=== PATIENT | female | born 1965 | race African-American/Black ===

== ENCOUNTER 2018-11-07 15:17 | Emergency (ER) | payer OTHER ==
[~2018-11-07] VITALS: Ht 170.2 cm; Wt 63.0 kg
[2018-11-07] MEDS ORDERED: DIPHENHYDRAMINE 50 MG INJ IV STA (15:27)
[2018-11-07] MEDS ORDERED: SOD CHLORIDE 0.9% 1,000 ML IV STA ×2 (15:27→18:33)
[2018-11-07] MEDS ORDERED: METOCLOPRAMIDE 10 MG INJ IV STA (15:27)
[2018-11-07] MEDS ORDERED: ONDANSETRON 4 MG INJ IV STA (15:27)
[2018-11-07 15:32] VITALS: Ht 170.2 cm; Wt 63.0 kg
[2018-11-07] MEDS ORDERED: IBUP-1542 PO (18:05)
[2018-11-07] MEDS ORDERED: ONDA4TAB14 PO (18:05)
--- NOTE | 2018-11-07 18:06 | ERD ---
ER Documentation Chief Complaint Chief Complaint Syncopial episode witnessed now aox4 HPI Patient is a 53-year-old female with headache who presents with headache. The patient was brought in by ambulance. She has had a headache for the past 3 days which has been worsening. The patient had a normal blood sugar per paramedics at 101. The patient did pass out just before coming in. The patient has no fevers. She denies vomiting. She says this headache feels like previous headaches she has had in the past. Upon review of old medical records this is the patient's first visit to the emergency department. She goes to the [facility]. ROS All systems reviewed and are negative except as per history of present illness. Medications Home Meds Active Scripts Ondansetron (Ondansetron Odt) 4 Mg Tab.rapdis, 4 MG PO Q6H PRN for NAUSEA AND/OR VOMITING, #10 TAB Prov:MITESH ANGELA MD 11/07/18 Ibuprofen* (Motrin*) 600 Mg Tab, 600 MG PO Q6H PRN for PAIN AND OR ELEVATED TEMP, #30 TAB Prov:MITESH ANGELA MD 11/07/18 PMhx/Soc Medical and Surgical Hx: pt denies Medical Hx History of Surgery: Yes () Anesthesia Reaction: No Hx Neurological Disorder: No Hx Respiratory Disorders: No Hx Cardiac Disorders: No Hx Psychiatric Problems: No Hx Miscellaneous Medical Probl: No (PT DENIES MEDICAL HX) Hx Alcohol Use: No Hx Substance Use: Yes (MJ) Hx Tobacco Use: No Smoking Status: Former smoker FmHx Family History: diabetes Physical Exam Vitals Vital Signs Date Temp Pulse Resp B/P (MAP) Pulse Ox O2 O2 Flow FiO2 Time Delivery Rate 11/07/18 98.3 56 18 96/76 (83) 100 15:32 Physical Exam Const: Moderate distress Head: Atraumatic Eyes: Normal Conjunctiva ENT: Normal External Ears, Nose and Mouth. Neck: Full range of motion. No meningismus. Resp: Clear to auscultation bilaterally Cardio: Regular rate and rhythm, no murmurs Abd: Soft, non tender, non distended. Normal bowel sounds Skin: No petechiae or rashes Back: No midline or flank tenderness Ext: No cyanosis, or edema Neur: Awake and alert, cranial nerves II through XII are intact, strength is 5 out of 5 in all 4 extremities Psych: Normal Mood and Affect Result Diagram: 11/07/18 1555 11/07/18 1555 Results 24 hrs Laboratory Tests Test 11/07/18 15:51 11/07/18 15:55 11/07/18 17:42 Bedside Glucose 104 mg/dL White Blood Count 7.5 10^3/ul Red Blood Count 4.25 10^6/ul Hemoglobin 13.3 g/dl Hematocrit 40.0 % Mean Corpuscular Volume 94.1 fl Mean Corpuscular Hemoglobin 31.3 pg Mean Corpuscular 33.3 g/dl Hemoglobin Concent Red Cell Distribution Width 12.2 % Platelet Count 262 10^3/UL Mean Platelet Volume 8.9 fl Immature Granulocytes % 0.100 % Neutrophils % 56.8 % Lymphocytes % 33.9 % Monocytes % 8.4 % Eosinophils % 0.4 % Basophils % 0.4 % Nucleated Red Blood Cells % 0.0 /100WBC Immature Granulocytes # 0.010 10^3/ul Neutrophils # 4.2 10^3/ul Lymphocytes # 2.5 10^3/ul Monocytes # 0.6 10^3/ul Eosinophils # 0.0 10^3/ul Basophils # 0.0 10^3/ul Nucleated Red Blood Cells # 0.0 10^3/ul Sodium Level 139 mmol/L Potassium Level 3.5 mmol/L Chloride Level 102 mmol/L Carbon Dioxide Level 27 mmol/L Anion Gap 10 Blood Urea Nitrogen 12 mg/dl Creatinine 0.71 mg/dl Est Glomerular Filtrat > 60 mL/min Rate mL/min Glucose Level 91 mg/dl Calcium Level 9.4 mg/dl Troponin I < 0.012 ng/ml Urine Color YELLOW Urine Clarity CLEAR Urine pH 6.0 Urine Specific [place] 1.012 Urine Ketones NEGATIVE mg/dL Urine Nitrite NEGATIVE mg/dL Urine Bilirubin NEGATIVE mg/dL Urine Urobilinogen 1+ mg/dL Urine Leukocyte Esterase TRACE Abraham/ul Urine Microscopic RBC 1 /HPF Urine Microscopic WBC 2 /HPF Urine Squamous Epithelial Cells FEW /HPF Urine Bacteria FEW /HPF Urine Mucus FEW /HPF Urine Hemoglobin NEGATIVE mg/dL Urine Glucose NEGATIVE mg/dL Urine Total Protein NEGATIVE mg/dl Current Medications Medications Dose Sig/Diana Start Time Status Last (Trade) Ordered Route PRN Stop Time Admin Dose Reason Admin Sodium 1,000 ml @ Q1H STAT 11/07/18 DC 11/07/18 Chloride 1,000 mls/hr IV 15:27 16:12 11/07/18 16:26 10 mg ONCE STAT 11/07/18 DC 11/07/18 Metoclopramid IV 15:27 16:06 e HCl 11/07/18 15:29 (Reglan) Ondansetron 4 mg ONCE STAT 11/07/18 DC 11/07/18 HCl (Zofran IV 15:27 16:06 Inj) 11/07/18 15:29 25 mg ONCE STAT 11/07/18 DC 11/07/18 Diphenhydrami IV 15:27 16:06 ne HCl 11/07/18 15:29 (Benadryl) Procedures/MDM EKG read by me: Rate/Rhythm: Sinus bradycardia at a rate of 56 Intervals: Normal Impression: Bradycardia without ischemia CT brain shows no bleed or mass per radiology. Patient is a 53-year-old female who presents with headache and syncope. Laboratory studies are normal. EKG shows bradycardia without ischemia. CT brain shows no sign of mass or bleed. I doubt stroke. I doubt serious electrolyte abnormality. I believe outpatient management is appropriate but she will need close follow-up with her primary doctor within 24-48 hours. She can return sooner for any worsening symptoms. She was given Reglan, Benadryl, and Zofran as well as 1 L of normal saline fluid bolus and feels much better. Departure Diagnosis: Primary Impression: Headache Headache type: unspecified Headache chronicity pattern: acute headache Intractability: not intractable Qualified Codes: R51 - Headache Additional Impression: Syncope Syncope type: unspecified Qualified Codes: R55 - Syncope and collapse Condition: Fair Patient Instructions: Causes of Syncope, Self-Care for Headaches Additional Instructions: Call your primary care doctor TOMORROW for an appointment during the next 1-2 days.See the doctor sooner or return here if your condition worsens before your appointment time. MITESH ANGELA MD Nov 07, 2018 18:06
[2018-11-07 20:32] VITALS: BP 88/55; PULSE 59; RESP 18
== END 2018-11-07 20:33 | disposition home or self-care (01) ==
LOC: E/R 15:17
DX: R51 Headache (principal); Z87.891 Personal history of nicotine dependence
CPT/HCPCS: 36415; 70450; 80048; 81001; 82962; 84484; 85025; 93005; 96374; 96375; J1200; J2405; J2765; J7030; Z7502

== ENCOUNTER 2018-11-08 13:30 | Inpatient (IN) | payer OTHER ==
[~2018-11-08] VITALS: Ht 157.5 cm; Wt 70.1 kg
[~2018-11-08 13:30] MED LIST: IBUP-1542 PO; ONDA4TAB14 PO
[2018-11-08] MEDS ORDERED: ONDANSETRON 4 MG INJ IV STA (16:08)
[2018-11-08] MEDS ORDERED: morphine 4 MG/ML VIAL IV STA (16:08)
[2018-11-08] MEDS ORDERED: SOD CHLORIDE 0.9% 1,000 ML IV STA ×2 (16:08→19:07)
[2018-11-08] MEDS ORDERED: IOHEXOL 100 ML ONE (16:18)
[2018-11-08] MEDS ORDERED: SOD CHLORIDE 0.9% 100 ML ONE (16:18)
[2018-11-08] MEDS ORDERED: ONDANSETRON 4 MG INJ IV PRN ×2 (17:00→22:30)
[2018-11-08] MEDS ORDERED: ACETAMINOPHEN 325 MG TAB PO PRN ×2 (17:00→22:30)
--- NOTE | 2018-11-08 18:08 | HP ---
Date/Time of Note Date/Time of Note DATE: 11/08/18 TIME: 17:53 Assessment/Plan VTE Prophylaxis Pharmacological prophylaxis: heparin Lines/Catheters IV [facility]ter [facility]from [facility]): Saline Lock Assessment/Plan Hospital Course 53 yo female without significant PMH who presents with headache and syncope, found to be bradycardic Headache: - Duration is concerning for migraine but other clinical characteristics make it sound more like tension. Regardless head CT does not show concerning pathology - MRI for completion - Analgesics - Neurology Syncope: - Concerning for primary cardiac etiology given bradycardia, though HR does go up to 60s - JVD presents on exam concerning for cardiomyopathy, will get TTE - Check TSH given bradycardia - Cardiology consult - monitor or telemetry Result Diagram: 11/08/18 1626 Results 24hrs Laboratory Tests Test 11/08/18 16:26 White Blood Count 7.5 Red Blood Count 4.17 L Hemoglobin 13.5 Hematocrit 40.7 Mean Corpuscular Volume 97.6 Mean Corpuscular Hemoglobin 32.4 Mean Corpuscular Hemoglobin Concent 33.2 Red Cell Distribution Width 12.2 Platelet Count 231 Mean Platelet Volume 9.5 Immature Granulocytes % 0.300 Neutrophils % 52.1 Lymphocytes % 37.3 Monocytes % 9.1 Eosinophils % 0.9 Basophils % 0.3 Nucleated Red Blood Cells % 0.0 Immature Granulocytes # 0.020 Neutrophils # 3.9 Lymphocytes # 2.8 Monocytes # 0.7 Eosinophils # 0.1 Basophils # 0.0 Nucleated Red Blood Cells # 0.0 HPI/ROS Admit Date/Time Admit Date/Time Hx of Present Illness 53 yo female without significant PMH presents with syncope and headache Has been in usual state of good health until a few days ago. Since then has syncopized twice. She has also developed headacehs Syncope occurred yesterday. She was standing at a bus stop. Began to feel lightheaded and clammy. Bent over then syncopized. Clearly had prodrome Came to ED yesterday where found to be hypotensive. Given 2 L NS and discharged. Tropin neg. Labs unremarkable. Head CT without acute pathology Today she returns because she continues to have headache. It is bilateral across forehead. Nonpulsatile. No visual symptoms or aura of any sort. Denies fevers Feels fatigued. ROS Constitutional: no complaints, improved Eyes: no complaints ENT: no complaints Respiratory: no complaints Cardiovascular: no complaints Gastrointestinal: no complaints Genitourinary: no complaints Musculoskeletal: no complaints Skin: no complaints Neurologic: no complaints Endocrine: no complaints Lymphatic: no complaints Psychological: no complaints, nl mood/affect Immunologic: no complaints PMH/Family/Social Past Medical History Medical History: no pertinent history Medications Current Medications Ondansetron HCl (Zofran Inj) 4 mg ER BRIDGE PRN IV NAUSEA/VOMITING; Start 11/08/18 at 17:00; Stop 11/09/18 at 16:59 Acetaminophen (Tylenol Tab) 650 mg ER BRIDGE PRN PO .MILD PAIN 1-3 OR TEMP; Start 11/08/18 at 17:00; Stop 11/09/18 at 16:59 Coded Allergies: No Known Allergy (Unverified , 11/08/18) Past Surgical History Past Surgical Hx: no surgical history Family History Significant Family History: no pertinent family hx Social History Alcohol Use: none Smoking Status: Never smoker Drug Use: none Exam/Review of Systems Vital Signs Vitals Vital Signs Date Temp Pulse Resp B/P (MAP) Pulse Ox O2 O2 Flow FiO2 Time Delivery Rate 11/08/18 48 18 124/77 100 Room Air 16:38 (93) 11/08/18 97.0 16:27 Exam Exam Well appearing In NAD AOx3 CN II-XII in tact Strenght 5/5 throughout SILT throughout + JVD Bradycardic, regular Lungs clear Abdomen soft nt nd Ext wihtout edema MARIA INES BARTON MD Nov 08, 2018 18:07
--- NOTE | 2018-11-08 18:21 | ERD ---
ER Documentation Chief Complaint Chief Complaint BLAKE, SOB X 1 DAY; SEEN IN THIS ER YESTERDAY FOR SYNCOPE HPI Patient is a 53-year-old female with no medical problems who presents saying "I feel worse today than yesterday". The patient says that she has a bad headache. She says that she feels generalized weakness and no energy. She had syncope yesterday and was seen by myself in the emergency department. She has tried Motrin. Upon review of old medical records she has had only 2 visits to the ER yesterday and today. Her primary doctor is Dr. Dilshad Bland. ROS All systems reviewed and are negative except as per history of present illness. Medications Home Meds Discontinued Scripts Ondansetron (Ondansetron Odt) 4 Mg Tab.rapdis, 4 MG PO Q6H PRN for NAUSEA AND/OR VOMITING, #10 TAB Prov:MITESH ANGELA MD 11/07/18 Ibuprofen* (Motrin*) 600 Mg Tab, 600 MG PO Q6H PRN for PAIN AND OR ELEVATED TEMP, #30 TAB Prov:MITESH ANGELA MD 11/07/18 Allergies Allergies: Coded Allergies: No Known Allergy (Unverified , 11/08/18) PMhx/Soc History of Surgery: Yes ( x 1 ) Anesthesia Reaction: No Hx Neurological Disorder: No Hx Respiratory Disorders: No Hx Cardiac Disorders: No Hx Psychiatric Problems: No Hx Miscellaneous Medical Probl: Yes (ANEMIA) Hx Alcohol Use: No Hx Substance Use: Yes (MJ) Hx Tobacco Use: No Smoking Status: Never smoker FmHx Family History: diabetes Physical Exam Vitals Vital Signs Date Temp Pulse Resp B/P (MAP) Pulse Ox O2 O2 Flow FiO2 Time Delivery Rate 11/08/18 45 20 102/54 100 Room Air 18:07 (70) 11/08/18 48 18 124/77 100 Room Air 16:38 (93) 11/08/18 97.0 8 24 139/65 100 Room Air 16:27 (89) 11/08/18 97.0 52 24 139/65 100 14:17 (89) Physical Exam Const: Moderate distress Head: Atraumatic Eyes: Normal Conjunctiva ENT: Normal External Ears, Nose and Mouth. Neck: Full range of motion. No meningismus. Resp: Clear to auscultation bilaterally Cardio: Regular rate and rhythm, no murmurs Abd: Soft, non tender, non distended. Normal bowel sounds Skin: No petechiae or rashes Back: No midline or flank tenderness Ext: No cyanosis, or edema Neur: Awake and alert, cranial nerves II through XII are intact, strength is 5 out of 5 in all 4 extremities, no slurred speech or pronator drift Psych: Normal Mood and Affect Result Diagram: 11/08/18 1626 11/08/18 1534 Results 24 hrs Laboratory Tests Test 11/08/18 16:26 11/08/18 17:34 White Blood Count 7.5 10^3/ul Red Blood Count 4.17 10^6/ul Hemoglobin 13.5 g/dl Hematocrit 40.7 % Mean Corpuscular Volume 97.6 fl Mean Corpuscular Hemoglobin 32.4 pg Mean Corpuscular Hemoglobin Concent 33.2 g/dl Red Cell Distribution Width 12.2 % Platelet Count 231 10^3/UL Mean Platelet Volume 9.5 fl Immature Granulocytes % 0.300 % Neutrophils % 52.1 % Lymphocytes % 37.3 % Monocytes % 9.1 % Eosinophils % 0.9 % Basophils % 0.3 % Nucleated Red Blood Cells % 0.0 /100WBC Immature Granulocytes # 0.020 10^3/ul Neutrophils # 3.9 10^3/ul Lymphocytes # 2.8 10^3/ul Monocytes # 0.7 10^3/ul Eosinophils # 0.1 10^3/ul Basophils # 0.0 10^3/ul Nucleated Red Blood Cells # 0.0 10^3/ul Prothrombin Time 14.2 Sec Prothrombin Time Ratio 1.1 INR International Normalized Ratio 1.09 Activated Partial Thromboplast Time 32.1 Sec Sodium Level 139 mmol/L Potassium Level 3.3 mmol/L Chloride Level 110 mmol/L Carbon Dioxide Level 23 mmol/L Anion Gap 6 Blood Urea Nitrogen 9 mg/dl Creatinine 0.55 mg/dl Est Glomerular Filtrat Rate mL/min > 60 mL/min Glucose Level 59 mg/dl Calcium Level 7.9 mg/dl Current Medications Medications Dose Sig/Diana Start Time Status Last (Trade) Ordered Route PRN Stop Time Admin Dose Reason Admin Sodium 1,000 ml @ Q1H STAT 11/08/18 DC 11/08/18 Chloride 1,000 mls/hr IV 16:08 16:27 11/08/18 17:07 Ondansetron 4 mg ONCE STAT 11/08/18 DC 11/08/18 HCl (Zofran IV 16:08 16:27 Inj) 11/08/18 16:09 Morphine 4 mg ONCE STAT 11/08/18 DC 11/08/18 Sulfate IV 16:08 16:27 (morphine) 11/08/18 16:09 Iohexol 100 ml @ ud STK-MED 11/08/18 DC ONCE .ROUTE 16:18 11/08/18 16:19 Sodium 100 ml @ ud STK-MED 11/08/18 DC Chloride ONCE .ROUTE 16:18 11/08/18 16:19 IV Flush 10 ml STK-MED 11/08/18 DC (NS 10 ml) ONCE .ROUTE 16:18 11/08/18 16:19 Ondansetron 4 mg ER BRIDGE 11/08/18 HCl (Zofran PRN IV 17:00 Inj) NAUSEA/VOMITI 11/09/18 16:59 NG 650 mg ER BRIDGE 11/08/18 Acetaminophen PRN PO 17:00 (Tylenol .MILD PAIN 11/09/18 16:59 Tab) 1-3 OR TEMP IV Flush 3 ml PER 11/08/18 (NS 3 ml) PROTOCOL IV 18:30 Oxycodone/ 2 tab Q6H PRN 11/08/18 Acetaminophen PO .SEVERE 18:30 (Percocet PAIN 7-10 (5/ 325)) Procedures/MDM CTA head pending radiology read. CTA of the neck pending radiology read at this time. EKG read by me: Rate/Rhythm: Sinus bradycardia Intervals: Normal Impression: Bradycardia without ischemia Patient is a 53-year-old female with no medical problems who presents with grayson cardia and headache. She also has weakness. Laboratory studies were repeated. EKG shows sinus bradycardia. She will be admitted to the care of Dr. Broussard to a telemetry bed for observation. She was given morphine and Zofran. I doubt stroke, and cranial hemorrhage, or intracranial mass. Departure Diagnosis: Primary Impression: Bradycardia Additional Impressions: Headache Headache type: unspecified Headache chronicity pattern: acute headache Intractability: not intractable Qualified Codes: R51 - Headache Syncope Syncope type: unspecified Qualified Codes: R55 - Syncope and collapse Condition: MITESH Rogers MD Nov 08, 2018 18:21
[2018-11-08] MEDS ORDERED: NACL 0.9% 3 ML SYG IV SCH (18:30)
[2018-11-08] MEDS ORDERED: OXYCODONE/ACETAMINOPHEN (5/325) TAB PO PRN (18:30)
[2018-11-08] MEDS ORDERED: POTASSIUM CHLORIDE (SR) 20 MEQ TAB PO STA (19:07)
[2018-11-08 22:09] VITALS: PULSE 44
[2018-11-08 22:19] VITALS: BP 117/65; PULSE 44; RESP 20
[2018-11-08 22:20] VITALS: Ht 157.5 cm; Wt 70.1 kg
[2018-11-08 22:26] VITALS: PULSE 39
[2018-11-08] MEDS ORDERED: KETOROLAC 15 MG INJ IV STA (22:30)
[2018-11-08 23:20] VITALS: BP 94/53; PULSE 55; RESP 20
[2018-11-09] VITALS (11 sets, daily range): BP systolic 98–112; BP diastolic 54–62; PULSE 34–55; RESP 18–20
[2018-11-09] MEDS ORDERED: ATROPINE 0.4 MG INJ IV ONE (02:30)
[2018-11-09] MEDS ORDERED: ATROPINE 1 MG/10 ML SYRINGE IV ONE (03:00)
[2018-11-09] MEDS ORDERED: ATROPINE 1 MG/10 ML SYRINGE IV PRN (03:30)
[2018-11-09] MEDS ORDERED: LIDOCAINE/MYLANTA 40 ML BTL PO ONE (06:00)
[2018-11-09] MEDS: NITROGLYCERIN (SL) 0.4 MG TAB SL PRN ×2 (06:35→06:43)
[2018-11-09] MEDS ORDERED: morphine 2 MG INJ IV STA ×2 (06:51→12:51)
--- NOTE | 2018-11-09 14:12 | CONS ---
Assessment/Plan Assessment/Plan Hospital Course 53 yo F with hx of headaches NOS who presents for evaluation of headache and LOC; Neurology is consulted for headache. The clinical picture is consistent with migraines. MRI brain is reassuringly without acute intracranial pathology. CTA H/N is the same. P: Give toradol 30mg IV x1 dose, followed by maintenance naproxen 500 BID. Add protonix 40mg daily for GI ppx. Other management and supportive care per primary Will follow clinically. Consultation Date/Type/Reason Admit Date/Time Type of Consult Neurology Reason for Consultation headache Requesting Provider: MARIA INES BARTON MD Date/Time of Note DATE: 11/09/18 TIME: 14:12 Hx of Present Illness 53 yo F with no significant PMH who presented to the ED for evaluation of LOC and headache. History was obtained from pt and chart review. The pt endorses a headache x 5 days and stated that it was a dull, throbbing pain that came on gradually, was a 10/10 and was localized only to her frontal lobe bilaterally. Accompanying sx included nausea and black spots in her vision. She denied aggravating factors and states mild-moderate relief with the IV toradol and morphine that she received here in the hospital. She also endorses a hx of headaches but stated it has never been this bad. She additionally notes that her headache was worst on Wednesday, which is the same day she had her syncopal event. It is additionally elsewhere noted: Hx of Present Illness 53 yo female without significant PMH presents with syncope and headache Has been in usual state of good health until a few days ago. Since then has syncopized twice. She has also developed headacehs Syncope occurred yesterday. She was standing at a bus stop. Began to feel lightheaded and clammy. Bent over then syncopized. Clearly had prodrome Came to ED yesterday where found to be hypotensive. Given 2 L NS and discharged. Tropin neg. Labs unremarkable. Head CT without acute pathology Today she returns because she continues to have headache. It is bilateral across forehead. Nonpulsatile. No visual symptoms or aura of any sort. Denies fevers Feels fatigued. negative unless noted otherwise in HPI Exam/Review of Systems Exam Vitals Vital Signs Date Temp Pulse Resp B/P (MAP) Pulse Ox O2 O2 Flow FiO2 Time Delivery Rate 11/09/18 44 12:08 11/09/18 98.0 18 107/62 98 Nasal 2.0 11:21 (77) Cannula Intake and Output 11/08/18 11/08/18 11/09/18 1515:00 23:00 07:00 IntakeIntake Total 220 ml BalanceBalance 220 ml Exam PE: Gen Appearance: No Apparent Distress HEENT: Normocephalic Cardiovascular: Regular rate Lungs: Clear bilaterally Abdomen: Soft Extremities: Dry NE: The patient was alert and oriented. Language was normal. Fund of knowledge was normal. Pupils were equal and reactive to light. There was no afferent pupillary defect. Visual brown were normal. Funduscopic examination was limited. Extra-ocular movements were full. Ptosis was absent. There was no nystagmus. Facial sensation was normal. Face was symmetric with normal strength. Hearing was intact. Palate movements were normal. Neck strength was normal. There was normal tongue bulk and speed of movement. Tone was normal. Muscle bulk was normal. I did not see fasciculations. The pt was generally weak. Vibration sensation was normal. Temperature and pinprick sensation was normal. Rapid alternating movements were normal. There was no dysmetria. There was no intention tremor. Gait was deferred due to bedrest. Arm and leg reflexes were 2+ and symmetric. Mcdaniel's sign was absent. Plantar responses were flexor. Results Result Diagram: 11/09/18 0436 11/09/18 0436 Results 24hrs Laboratory Tests Test 11/08/18 16:26 11/08/18 17:34 11/09/18 04:36 11/09/18 07:47 White Blood Count 7.5 6.9 Red Blood Count 4.17 L 3.67 L Hemoglobin 13.5 11.5 L Hematocrit 40.7 35.7 L Mean Corpuscular 97.6 97.3 Volume Mean Corpuscular 32.4 31.3 Hemoglobin Mean Corpuscular 33.2 32.2 Hemoglobin Concent Red Cell 12.2 12.3 Distribution Width Platelet Count 231 205 Mean Platelet Volume 9.5 9.3 Immature 0.300 0.300 Granulocytes % Neutrophils % 52.1 63.0 Lymphocytes % 37.3 28.9 Monocytes % 9.1 7.2 Eosinophils % 0.9 0.3 Basophils % 0.3 0.3 Nucleated Red Blood 0.0 0.0 Cells % Immature 0.020 0.020 Granulocytes # Neutrophils # 3.9 4.4 Lymphocytes # 2.8 2.0 Monocytes # 0.7 0.5 Eosinophils # 0.1 0.0 Basophils # 0.0 0.0 Nucleated Red Blood 0.0 0.0 Cells # Prothrombin Time 14.2 Prothrombin Time 1.1 Ratio INR International 1.09 Normalized Ratio Activated 32.1 Partial Thromboplast Time Sodium Level 139 143 Potassium Level 3.3 L 4.9 Chloride Level 110 109 Carbon Dioxide Level 23 26 Anion Gap 6 8 Blood Urea Nitrogen 9 11 Creatinine 0.55 0.63 Est Glomerular > 60 > 60 Filtrat Rate mL/min Glucose Level 59 #L 81 Calcium Level 7.9 L 8.6 Hemoglobin A1c 5.5 Total Bilirubin 0.5 Direct Bilirubin 0.00 Indirect Bilirubin 0.5 Aspartate Amino 19 Transf (AST/SGOT) Alanine 20 Aminotransferase (AL T/SGPT) Alkaline Phosphatase 67 Creatine Kinase 63 61 Creatine Kinase 1.2 1.2 Index Creatinine Kinase MB 0.77 0.73 (Mass) Troponin I < 0.012 < 0.012 Total Protein 6.0 L Albumin 3.1 L Globulin 2.90 Albumin/Globulin 1.06 Ratio Thyroid Stimulating 0.931 Hormone (TSH) Medications Medication Current Medications Ondansetron HCl (Zofran Inj) 4 mg ER BRIDGE PRN IV NAUSEA/VOMITING Last administered on 11/08/18at 19:00; Admin Dose 4 MG; Start 11/08/18 at 17:00; Stop 11/09/18 at 16:59 Acetaminophen (Tylenol Tab) 650 mg ER BRIDGE PRN PO .MILD PAIN 1-3 OR TEMP Last administered on 11/09/18at 10:14; Admin Dose 650 MG; Start 11/08/18 at 17:00; Stop 11/09/18 at 16:59 IV Flush (NS 3 ml) 3 ml PER PROTOCOL IV ; Start 11/08/18 at 18:30 Oxycodone/ Acetaminophen (Percocet (5/ 325)) 2 tab Q6H PRN PO .SEVERE PAIN 7-10 Last administered on 11/08/18 19:18; Admin Dose 1 TAB; Start 11/08/18 at 18:30 Ondansetron HCl (Zofran Inj) 4 mg Q4H PRN IV NAUSEA AND/OR VOMITING Last administered on 11/08/18 22:40; Admin Dose 4 MG; Start 11/08/18 at 22:30 Acetaminophen (Tylenol Tab) 650 mg Q6H PRN PO MILD PAIN(1-3)OR ELEVATED TEMP; Start 11/08/18 at 22:30 Atropine Sulfate (Atropine (Syringe)) 0.5 mg ONCE PRN IV BRADICARDIA Last administered on 11/09/18 04:00; Admin Dose 0.5 MG; Start 11/09/18 at 03:30; Stop 11/09/18 at 23:00 Nitroglycerin (Nitroglycerin (Sl Tab) 0.4 Mg) 1 tab Q5M PRN SL ANGINA Last administered on 11/09/18 06:43; Admin Dose 1 TAB; Start 11/09/18 at 06:00 Past Medical History reviewed Medical History: no pertinent history Home Meds Discontinued Scripts Ondansetron (Ondansetron Odt) 4 Mg Tab.rapdis, 4 MG PO Q6H PRN for NAUSEA AND/OR VOMITING, #10 TAB Prov:MITESH ANGELA MD 11/07/18 Ibuprofen* (Motrin*) 600 Mg Tab, 600 MG PO Q6H PRN for PAIN AND OR ELEVATED TEMP, #30 TAB Prov:MITESH ANGELA MD 11/07/18 Medications Current Medications Ondansetron HCl (Zofran Inj) 4 mg ER BRIDGE PRN IV NAUSEA/VOMITING Last administered on 11/08/18 19:00; Admin Dose 4 MG; Start 11/08/18 at 17:00; Stop 11/09/18 at 16:59 Acetaminophen (Tylenol Tab) 650 mg ER BRIDGE PRN PO .MILD PAIN 1-3 OR TEMP Last administered on 11/09/18 10:14; Admin Dose 650 MG; Start 11/08/18 at 17:00; Stop 11/09/18 at 16:59 IV Flush (NS 3 ml) 3 ml PER PROTOCOL IV ; Start 11/08/18 at 18:30 Oxycodone/ Acetaminophen (Percocet (5/ 325)) 2 tab Q6H PRN PO .SEVERE PAIN 7-10 Last administered on 11/08/18 19:18; Admin Dose 1 TAB; Start 11/08/18 at 18:30 Ondansetron HCl (Zofran Inj) 4 mg Q4H PRN IV NAUSEA AND/OR VOMITING Last administered on 11/08/18at 22:40; Admin Dose 4 MG; Start 11/08/18 at 22:30 Acetaminophen (Tylenol Tab) 650 mg Q6H PRN PO MILD PAIN(1-3)OR ELEVATED TEMP; Start 11/08/18 at 22:30 Atropine Sulfate (Atropine (Syringe)) 0.5 mg ONCE PRN IV BRADICARDIA Last administered on 11/09/18at 04:00; Admin Dose 0.5 MG; Start 11/09/18 at 03:30; Stop 11/09/18 at 23:00 Nitroglycerin (Nitroglycerin (Sl Tab) 0.4 Mg) 1 tab Q5M PRN SL ANGINA Last administered on 11/09/18at 06:43; Admin Dose 1 TAB; Start 11/09/18 at 06:00 Allergies: Coded Allergies: No Known Allergy (Unverified , 11/08/18) Past Surgical History reviewed Past Surgical Hx: no surgical history Social History reviewed Alcohol Use: none Smoking Status: Never smoker Drug Use: none TAE MEDRANO NP Nov 09, 2018 14:12 HUE NGUYEN Nov 09, 2018 19:59
--- NOTE | 2018-11-09 15:50 | PN ---
Date/Time of Note Date/Time of Note DATE: 11/09/18 TIME: 15:33 Assessment/Plan VTE Prophylaxis Risk score (from N[place])>0 risk: 2 [place] [facility] [place] Pharmacological prophylaxis: heparin Lines/Catheters Urinary Cath still in place: No Assessment/Plan Hospital Course 53 yo female without significant PMH who presents with headache and syncope, found to be bradycardic Headache: - Duration is concerning for migraine but other clinical characteristics make it sound more like tension. Regardless head CT does not show concerning pathology and MRI wnl - Analgesics - Neurology consulted Syncope: - Concerning for primary cardiac etiology given bradycardia, though HR does go up to 60s - JVD presents on exam concerning for cardiomyopathy, will get TTE -Normal TSH - Cardiology consulted, plan for NST tomorrow Discharge likely tomorrow if stable Result Diagram: 11/09/18 0436 11/09/18 0436 Results 24hrs Laboratory Tests Test 11/08/18 16:26 11/08/18 17:34 11/09/18 04:36 11/09/18 07:47 White Blood Count 7.5 6.9 Red Blood Count 4.17 L 3.67 L Hemoglobin 13.5 11.5 L Hematocrit 40.7 35.7 L Mean Corpuscular 97.6 97.3 Volume Mean Corpuscular 32.4 31.3 Hemoglobin Mean Corpuscular 33.2 32.2 Hemoglobin Concent Red Cell 12.2 12.3 Distribution Width Platelet Count 231 205 Mean Platelet Volume 9.5 9.3 Immature 0.300 0.300 Granulocytes % Neutrophils % 52.1 63.0 Lymphocytes % 37.3 28.9 Monocytes % 9.1 7.2 Eosinophils % 0.9 0.3 Basophils % 0.3 0.3 Nucleated Red Blood 0.0 0.0 Cells % Immature 0.020 0.020 Granulocytes # Neutrophils # 3.9 4.4 Lymphocytes # 2.8 2.0 Monocytes # 0.7 0.5 Eosinophils # 0.1 0.0 Basophils # 0.0 0.0 Nucleated Red Blood 0.0 0.0 Cells # Prothrombin Time 14.2 Prothrombin Time 1.1 Ratio INR International 1.09 Normalized Ratio Activated 32.1 Partial Thromboplast Time Sodium Level 139 143 Potassium Level 3.3 L 4.9 Chloride Level 110 109 Carbon Dioxide Level 23 26 Anion Gap 6 8 Blood Urea Nitrogen 9 11 Creatinine 0.55 0.63 Est Glomerular > 60 > 60 Filtrat Rate mL/min Glucose Level 59 #L 81 Calcium Level 7.9 L 8.6 Hemoglobin A1c 5.5 Total Bilirubin 0.5 Direct Bilirubin 0.00 Indirect Bilirubin 0.5 Aspartate Amino 19 Transf (AST/SGOT) Alanine 20 Aminotransferase (AL T/SGPT) Alkaline Phosphatase 67 Creatine Kinase 63 61 Creatine Kinase 1.2 1.2 Index Creatinine Kinase MB 0.77 0.73 (Mass) Troponin I < 0.012 < 0.012 Total Protein 6.0 L Albumin 3.1 L Globulin 2.90 Albumin/Globulin 1.06 Ratio Thyroid Stimulating 0.931 Hormone (TSH) Test 11/09/18 14:02 Creatine Kinase 56 Creatine Kinase 1.4 Index Creatinine Kinase MB 0.81 (Mass) Troponin I < 0.012 Subjective 24 Hr Interval Summary Free Text/Dictation Headache a bit improved Having sinus bradycardia to the 30s Exam/Review of Systems Exam Vitals Vital Signs Date Temp Pulse Resp B/P (MAP) Pulse Ox O2 O2 Flow FiO2 Time Delivery Rate 11/09/18 44 12:08 11/09/18 98.0 18 107/62 98 Nasal 2.0 11:21 (77) Cannula Intake and Output 11/08/18 11/08/18 11/09/18 1515:00 23:00 07:00 IntakeIntake Total 220 ml BalanceBalance 220 ml Exam + JVD Bj, regular CN II-XII in tact Strenght in tact throughout Lungs clear Results Results 24hrs Laboratory Tests Test 11/08/18 16:26 11/08/18 17:34 11/09/18 04:36 11/09/18 07:47 White Blood Count 7.5 6.9 Red Blood Count 4.17 L 3.67 L Hemoglobin 13.5 11.5 L Hematocrit 40.7 35.7 L Mean Corpuscular 97.6 97.3 Volume Mean Corpuscular 32.4 31.3 Hemoglobin Mean Corpuscular 33.2 32.2 Hemoglobin Concent Red Cell 12.2 12.3 Distribution Width Platelet Count 231 205 Mean Platelet Volume 9.5 9.3 Immature 0.300 0.300 Granulocytes % Neutrophils % 52.1 63.0 Lymphocytes % 37.3 28.9 Monocytes % 9.1 7.2 Eosinophils % 0.9 0.3 Basophils % 0.3 0.3 Nucleated Red Blood 0.0 0.0 Cells % Immature 0.020 0.020 Granulocytes # Neutrophils # 3.9 4.4 Lymphocytes # 2.8 2.0 Monocytes # 0.7 0.5 Eosinophils # 0.1 0.0 Basophils # 0.0 0.0 Nucleated Red Blood 0.0 0.0 Cells # Prothrombin Time 14.2 Prothrombin Time 1.1 Ratio INR International 1.09 Normalized Ratio Activated 32.1 Partial Thromboplast Time Sodium Level 139 143 Potassium Level 3.3 L 4.9 Chloride Level 110 109 Carbon Dioxide Level 23 26 Anion Gap 6 8 Blood Urea Nitrogen 9 11 Creatinine 0.55 0.63 Est Glomerular > 60 > 60 Filtrat Rate mL/min Glucose Level 59 #L 81 Calcium Level 7.9 L 8.6 Hemoglobin A1c 5.5 Total Bilirubin 0.5 Direct Bilirubin 0.00 Indirect Bilirubin 0.5 Aspartate Amino 19 Transf (AST/SGOT) Alanine 20 Aminotransferase (AL T/SGPT) Alkaline Phosphatase 67 Creatine Kinase 63 61 Creatine Kinase 1.2 1.2 Index Creatinine Kinase MB 0.77 0.73 (Mass) Troponin I < 0.012 < 0.012 Total Protein 6.0 L Albumin 3.1 L Globulin 2.90 Albumin/Globulin 1.06 Ratio Thyroid Stimulating 0.931 Hormone (TSH) Test 11/09/18 14:02 Creatine Kinase 56 Creatine Kinase 1.4 Index Creatinine Kinase MB 0.81 (Mass) Troponin I < 0.012 Medications Medication Current Medications Ondansetron HCl (Zofran Inj) 4 mg ER BRIDGE PRN IV NAUSEA/VOMITING Last administered on 11/08/18at 19:00; Admin Dose 4 MG; Start 11/08/18 at 17:00; Stop 11/09/18 at 16:59 Acetaminophen (Tylenol Tab) 650 mg ER BRIDGE PRN PO .MILD PAIN 1-3 OR TEMP Last administered on 11/09/18at 10:14; Admin Dose 650 MG; Start 11/08/18 at 17:00; Stop 11/09/18 at 16:59 IV Flush (NS 3 ml) 3 ml PER PROTOCOL IV ; Start 11/08/18 at 18:30 Oxycodone/ Acetaminophen (Percocet (5/ 325)) 2 tab Q6H PRN PO .SEVERE PAIN 7-10 Last administered on 11/08/18 19:18; Admin Dose 1 TAB; Start 11/08/18 at 18:30 Ondansetron HCl (Zofran Inj) 4 mg Q4H PRN IV NAUSEA AND/OR VOMITING Last administered on 11/08/18 22:40; Admin Dose 4 MG; Start 11/08/18 at 22:30 Acetaminophen (Tylenol Tab) 650 mg Q6H PRN PO MILD PAIN(1-3)OR ELEVATED TEMP; Start 11/08/18 at 22:30 Atropine Sulfate (Atropine (Syringe)) 0.5 mg ONCE PRN IV BRADICARDIA Last administered on 11/09/18 04:00; Admin Dose 0.5 MG; Start 11/09/18 at 03:30; Stop 11/09/18 at 23:00 Nitroglycerin (Nitroglycerin (Sl Tab) 0.4 Mg) 1 tab Q5M PRN SL ANGINA Last administered on 11/09/18 06:43; Admin Dose 1 TAB; Start 11/09/18 at 06:00 MARIA INES BARTON MD Nov 09, 2018 15:49
[2018-11-09] MEDS ORDERED: KETOROLAC 30 MG INJ IV STA (16:17)
--- NOTE | 2018-11-09 16:18 | RADRPT ---
Echocardiogram Report Patient Name: SHIELA POSTPatient ID: [id number] : [id number] (53y 3m)Study Date: 11/09/2018 7:18:45 AM Gender: FAccession #: [id number] Tech: Jaleesa Berger RDCS Location: [facility] [place] Ref.Physician: MARIA INES BARTON Height(Cm): BSA: Weight(Kg): Quality: AdequateAccount #: Procedures: Echocardiographic Report: Transthoracic echocardiogram with complete 2D, M-Mode, and doppler examination. Indications: Bradycardia, and Syncope. Measurements: 2D/M Mode Doppler Measurement Value Normal Range Measurement Value Normal Range LVIDd 2D 4.3 [ 3.8 - 5.2 ] cm AV Peak Honorio 1.1 [ 100.0 - 170.0 ] cm/sec LVIDs 2D 2.8 [ 2.2 - 3.5 ] cm AV Peak PG 5.0 [ 2.0 - 9.0 ] mmHg LVPWd 2D 0.9 [ 0.6 - 0.9 ] cm LVOT Peak Honorio 0.8 [ 70.0 - 110.0 ] cm/sec IVSd 2D 1.0 [ 0.6 - 0.9 ] cm LVOT Peak PG 3.0 [ 2.0 - 6.0 ] mmHg AoR Diam 2D 3.0 [ 2.3 - 3.1 ] cm MV E Peak Honorio 0.7 [ 60.0 - 130.0 ] cm/sec EDV 2D 82.6 [ 46.0 - 106.0 ] ml MV A Peak Honorio 0.6 [ 100.0 - 120.0 ] cm/sec ESV 2D 28.5 [ 14.0 - 42.0 ] ml MV E/A 1.2 [ 0.8 - 1.5 ] ratio EF 2D 65.5 [ 54.0 - 74.0 ] percent MV Decel Time 197 [ 104 - 258 ] msec LA Dimen 2D 3.0 [ 2.7 - 3.8 ] cm Lat E` Honorio 0.1 [ 10.0 - 15.0 ] cm/sec Lateral E/E` 5.7 [ 1.0 - 2.0 ] ratio Med E` Honorio 0.1 cm/sec MV E/A 1.2 [ 0.8 - 1.5 ] ratio TR Peak Honorio 2.5 [ 100.0 - 280.0 ] cm/sec TR Peak PG 24.0 mmHg RVSP 39.0 [ 10.0 - 36.0 ] mmHg RA Pressure 15.0 mmHg Findings: Left Ventricle: Lower limits of normal systolic function. Normal left ventricular cavity size. Mild concentric left ventricular hypertrophy. Ejection fraction is visually estimated at 50 %. Tissue Doppler/Mitral Doppler indices are consistent with impaired relaxation (Stage I diastolic dysfunction). Right Ventricle: Normal right ventricular size. Normal right ventricular systolic function. Left Atrium: The left atrium is normal in size. Right Atrium: The right atrium is normal in size. Mitral Valve: Normal appearance and function of the mitral valve with trace physiologic regurgitation. Aortic Valve: Normal appearance of the aortic valve. No significant aortic stenosis or insufficiency. Tricuspid Valve: Normal appearance of the tricuspid valve. Estimated peak PA systolic pressure 39 mmHg. There is trace to mild tricuspid regurgitation. Pulmonic Valve: Normal pulmonic valve appearance. Pericardium: Normal pericardium with no significant pericardial effusion. Aorta: Normal aortic root. IVC: Normal size and normal respiratory collapse consistent with normal right atrial pressure. Conclusions: Lower limits of normal systolic function. Normal left ventricular cavity size. Mild concentric left ventricular hypertrophy. Ejection fraction is visually estimated at 50 %. Tissue Doppler/Mitral Doppler indices are consistent with impaired relaxation (Stage I diastolic dysfunction). Normal appearance and function of the mitral valve with trace physiologic regurgitation. Normal appearance of the tricuspid valve. Estimated peak PA systolic pressure 39 mmHg. There is trace to mild tricuspid regurgitation. Electronically Signed By: Rob Walker 2018-11-09 16:17:19 PDT
--- NOTE | 2018-11-09 18:07 | CONS ---
DATE OF ADMISSION: 11/08/2018 DATE OF CONSULTATION: 11/09/2018 TYPE OF CONSULTATION: Cardiology. REASON FOR CONSULTATION: Bradycardia and syncope, assess for cardiac etiology. REQUESTING PHYSICIAN: Wily Broussard MD HISTORY OF PRESENT ILLNESS: Ms. Montemayor is a 53-year-old female with a history of somewhat recent rec urrent bouts of falls and syncope primarily preceded by dizziness per the patient. Denies chest pain , shortness of breath. Additionally, the patient was having headaches and presented to the emergency department status post recurrent syncopal episode. Upon arrival, temperature was 98.7, blood pressu re 139/65, pulse 52, respiratory rate 24, satting 100%. The patient's labs were notable for a white blood cell count of 7.5, hemoglobin 13.5, platelet count of 231. Sodium 139, potassium 3.3, creatini ne 0.5, BUN 9, hemoglobin A1c of 5, troponin negative, TSH was 0.931, INR of 1.0. 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 The patient's electrocardiogram initially revealed sinus bradycardia, rate of 47, normal axis, no rmal intervals, isolated Q in aVL. The patient was admitted to the floor and since admit to floor sh e was monitored in telemetry with episodes of sinus grayson to the high 30s. The patient was actually given a dose of atropine. She also complained of chest pain, had increase in heart rate and at this time remains in the high 40s with stable blood pressures. The patient's blood pressures have gone to a low of 94. PAST MEDICAL HISTORY: As above in HPI. MEDICATIONS CURRENTLY IN HOSPITAL: 1. Zofran p.r.n. 2. Tylenol p.r.n. ALLERGIES: NO KNOWN DRUG ALLERGIES. SOCIAL HISTORY: No current tobacco, EtOH. Occasional uses marijuana. FAMILY HISTORY: No history of sudden cardiac or early CAD. REVIEW OF SYSTEMS: As above in HPI. CONSTITUTIONAL: No fevers, chills. PULMONARY: No current shortness of breath. CARDIOVASCULAR: Bradycardia. GASTROINTESTINAL: No vomiting. GENITOURINARY: No hematuria. MUSCULOSKELETAL: Degenerative joint disease. PSYCHIATRIC: The patient denies depression. NEUROLOGIC: No documented history of CVA. CARDIOVASCULAR: Bradycardia, chest pain. PHYSICAL EXAMINATION: VITAL SIGNS: Temperature 97.4, blood pressure most recently 107/60, pulse 47, rate 18, satting 98%. GENERAL: The patient is alert, awake, in no acute distress. NECK: JVP approximately is 8 to 9 cm of water. CHEST: Fair air movement throughout. HEART: Regular rate and rhythm. Normal S1, S2, I/ systolic murmur, nondisplaced PMI. ABDOMEN: Positive bowel sounds, soft. EXTREMITIES: No significant pitting edema, 1+ pulses bilateral posterior tibial. LABORATORY DATA: Most recently from today, white blood cell count 6.9, hemoglobin 11.5, platelet cou nt 205. Sodium 143, potassium 4.9, creatinine of 0.6 and BUN 11. Troponin negative x2. TSH of 0.93 1. IMAGING STUDIES: As above in HPI. No further imaging studies for my review at this time. ELECTROCARDIOGRAM: As above in HPI with repeat EKG from today revealing normal sinus rhythm, rate of 72, normal axis, normal intervals, isolated Q in lead aVL. IMPRESSION: 1. Bradycardia. Continue to follow to assess that this is etiology of the patient's syncope as she does have still low blood pressure at this time. No significant pauses noted. 2. Syncope, recurrent in the setting of bradycardia. We will continue to assess for ongoing bradyca rdia and possible etiology to the patient's syncope, need for treatment such as pacemaker. 3. Chest pain, assess for acute coronary syndrome with negative troponins x2 at this time. RECOMMENDATIONS: 1. At this time, we would maintain the patient on telemetry monitoring to follow rhythm and rate con trol closely. 2. Continue the patient's atropine at bedside for treatment of bradycardia as necessary. 3. We will follow up patient's 2D echo done for assessment of ejection fraction, wall motion and kashif or valve abnormalities. 4. We will complete the patient's rule out for myocardial infarction to make ensure the patient's ch est pain and bradyarrhythmia are not due to any acute coronary syndromes. 5. We will consider a stress test in this patient to further assess possibility of significant obstr uctive coronary artery disease lending to symptoms of chest pain. 6. We will continue to follow the patient's rhythm closely with possible need for permanent pacemake r if she continues to have bradycardia, recurrent syncopal episodes and no other etiology of true syn cope. Thank you for allowing me to take part in this patient. I will continue to follow her very closely w ith you with further recommendations will be made as the patient progresses through her inpatient hos pital clinical course. Dictated By: NEGIN SAM/ZOLTAN Conf#: [id number] DID#: [id number] CC: WILY BROUSSARD MD;*EndCC*
[2018-11-09] MEDS: NAPROXEN 500 MG TAB PO SCH (21:38)
[2018-11-10] VITALS (9 sets, daily range): BP systolic 102–117; BP diastolic 55–65; PULSE 38–65; RESP 16–18
[2018-11-10] MEDS: PANTOPRAZOLE (EC) 40 MG TAB PO SCH (06:49)
[2018-11-10] MEDS: NAPROXEN 500 MG TAB PO SCH ×2 (08:14→20:19)
[2018-11-10] MEDS ORDERED: REGADENOSON 0.4 MG/5 ML SYG ONE (11:04)
--- NOTE | 2018-11-10 11:33 | CONS ---
Assessment/Plan Assessment/Plan Hospital Course (Demo Recall) IMPRESSION: 1. Bradycardia. Continue to follow to assess that this is etiology of the patient's syncope as she does have still low blood pressure at this time. No significant pauses noted.- mainly to low of 40's with stable BP 2. Syncope, recurrent in the setting of bradycardia. We will continue to assess for ongoing bradycardia and possible etiology to the patient's syncope, need for treatment such as pacemaker. 3. Chest pain, assess for acute coronary syndrome with negative troponins x3 at this time. Recc: -Tele -Follow rhythm/rate closely. No natalia agents -Lexiscan stress test today Consultation Date/Type/Reason Admit Date/Time Nov 10, 2018 at 08:05 Initial Consult Date 11/09/18 Type of Consult Cardiology Reason for Consultation syncope Requesting Provider: MARIA INES BARTON MD Date/Time of Note DATE: 11/10/18 TIME: 11:29 Exam/Review of Systems Vital Signs Vitals Vital Signs Date Temp Pulse Resp B/P (MAP) Pulse Ox O2 O2 Flow FiO2 Time Delivery Rate 11/10/18 47 08:03 11/10/18 Nasal 2.0 07:57 Cannula 11/10/18 98.9 16 117/65 98 07:13 (82) Intake and Output 11/09/18 11/09/18 11/10/18 1515:00 23:00 07:00 IntakeIntake Total 900 ml 200 ml BalanceBalance 900 ml 200 ml Exam Exam Review of Systems: CONSTITUTIONAL: No fevers, chills. PULMONARY: No sob CARDIOVASCULAR: No chest pain/palpitations GASTROINTESTINAL: No nausea/vomiting. GENITOURINARY: No hematuria/dysuria. MUSCULOSKELETAL: No myagias/arthalgias. PSYCHIATRIC: The patient denies depression. NEUROLOGIC: No weakness Constitutional: alert, oriented Psych: no complaints ENMT: mucosa pink and moist Neck: supple, jvd (9 cm water) Respiratory: diminished breath sounds Cardiovascular: regular rate and rhythm Gastrointestinal: soft, non-tender Musculoskeletal: muscle tone (normal) Extremities: edema (none) Neurological: other (No focal deficits) Labs Result Diagram: 11/09/18 0436 11/09/18 0436 Results 24hrs Laboratory Tests Test 11/09/18 14:02 11/09/18 14:45 11/09/18 21:45 11/10/18 06:22 Creatine Kinase 56 Creatine Kinase 1.4 Index Creatinine Kinase MB 0.81 (Mass) Troponin I < 0.012 Free Thyroxine 1.05 Urine Opiates Screen Positive Urine Barbiturates Negative Urine Amphetamines Negative Screen Urine Negative Benzodiazepines Screen Urine Cocaine Screen Negative Urine Cannabinoids Positive Triglycerides Level 57 Cholesterol Level 140 LDL Cholesterol, 82 Calculated HDL Cholesterol 47 Cholesterol/HDL 2.9 Ratio Medications Medications Current Medications IV Flush (NS 3 ml) 3 ml PER PROTOCOL IV ; Start 11/08/18 at 18:30 Oxycodone/ Acetaminophen (Percocet (5/ 325)) 2 tab Q6H PRN PO .SEVERE PAIN 7-10 Last administered on 11/08/18at 19:18; Admin Dose 1 TAB; Start 11/08/18 at 18:30 Ondansetron HCl (Zofran Inj) 4 mg Q4H PRN IV NAUSEA AND/OR VOMITING Last administered on 11/08/18at 22:40; Admin Dose 4 MG; Start 11/08/18 at 22:30 Acetaminophen (Tylenol Tab) 650 mg Q6H PRN PO MILD PAIN(1-3)OR ELEVATED TEMP; Start 11/08/18 at 22:30 Nitroglycerin (Nitroglycerin (Sl Tab) 0.4 Mg) 1 tab Q5M PRN SL ANGINA Last administered on 11/09/18at 06:43; Admin Dose 1 TAB; Start 11/09/18 at 06:00 Naproxen (Naprosyn) 500 mg BID PO Last administered on 11/09/18at 21:38; Admin Dose 500 MG; Start 11/09/18 at 21:00 Pantoprazole (Protonix Tab) 40 mg DAILY@06 PO Last administered on 11/10/18at 06:49; Admin Dose 40 MG; Start 11/10/18 at 06:00 NEGIN GUAJARDO Nov 10, 2018 11:33
--- NOTE | 2018-11-10 13:50 | RADRPT ---
Vent Rate: 46 bpm RR Interval: 1312 msec TN Interval: 135 msec QRS Duration: 78 msec QT Interval: 456 msec QTC Interval: 398 msec P-R-T [place]: 44 - 63 - 55 degrees Sinus bradycardia...rate< 50 Electronically Signed By: Dennys Goodson
--- NOTE | 2018-11-10 15:16 | CONS ---
Assessment/Plan Assessment/Plan Hospital Course 53 yo F with hx of headaches NOS who presents for evaluation of headache and LOC; Neurology is consulted for headache. The clinical picture is consistent with migraines. MRI brain is reassuringly without acute intracranial pathology. CTA H/N is the same. P: Cont maintenance naproxen 500 BID for headache. Add protonix 40mg daily for GI ppx. Cont pain management and other supportive care per primary Will follow clinically. Consultation Date/Type/Reason Admit Date/Time Nov 10, 2018 at 08:05 Type of Consult Neurology Reason for Consultation headache Requesting Provider: MARIA INES BARTON MD Date/Time of Note DATE: 11/10/18 TIME: 15:16 24 HR Interval Summary Free Text/Dictation Continues acute care. Pt endorses weakness. Boyfriend at bedside states that the pt had a near syncopal event when trying to get out of bed. Exam Vital Signs Vitals Vital Signs Date Temp Pulse Resp B/P (MAP) Pulse Ox O2 O2 Flow FiO2 Time Delivery Rate 11/10/18 97.5 51 18 117/65 100 Nasal 2.0 15:04 (82) Cannula Intake and Output 11/09/18 11/09/18 11/10/18 1515:00 23:00 07:00 IntakeIntake Total 900 ml 200 ml BalanceBalance 900 ml 200 ml Exam PE: Gen Appearance: No Apparent Distress HEENT: Normocephalic Cardiovascular: Regular rate Lungs: Clear bilaterally Abdomen: Soft Extremities: Dry NE: The patient was alert and oriented. Language was normal. Fund of knowledge was normal. Pupils were equal and reactive to light. There was no afferent pupillary defect. Visual brown were normal. Funduscopic examination was limited. Extra-ocular movements were full. Ptosis was absent. There was no nystagmus. Facial sensation was normal. Face was symmetric with normal strength. Hearing was intact. Palate movements were normal. Neck strength was normal. There was normal tongue bulk and speed of movement. Tone was normal. Muscle bulk was normal. I did not see fasciculations. The pt was generally weak. Vibration sensation was normal. Temperature and pinprick sensation was normal. Rapid alternating movements were normal. There was no dysmetria. There was no intention tremor. Gait was deferred due to bedrest. Arm and leg reflexes were 2+ and symmetric. Mcdaniel's sign was absent. Plantar responses were flexor. TAE MEDRANO NP Nov 10, 2018 15:16
--- NOTE | 2018-11-10 15:53 | CARRPT ---
DATE OF PROCEDURE: 11/10/2018 TYPE OF PROCEDURE: Lexiscan Cardiolite stress test, electrocardiogram portion. REASON FOR STRESS TESTING: Syncope, abnormal electrocardiogram, chest pain, assess for ischemia. BASELINE VITAL SIGNS AND ELECTROCARDIOGRAM: Pulse of 47, blood pressure 115/59. Electrocardiogram r evealed sinus bradycardia at 47, normal axis, normal intervals with inferior T-wave inversion in lead 2. DESCRIPTION OF PROCEDURE: The patient underwent standard Lexiscan infusion protocol over 10 seconds followed by radiolabeled tracer. The patient's test was stopped due to completion of protocol. Maxi mal achieved blood pressure during test was 114/63. Maximum heart rate during test was 118. ELECTROCARDIOGRAM FINDINGS: The patient did not develop any new Lexiscan-induced ST or T-wave change s from baseline abnormalities. No documented PVCs. SYMPTOMS: The patient had complaints of chest pain and shortness of breath during stress testing. IMPRESSION: 1. No Lexiscan-induced ST or T-wave changes from baseline abnormalities diagnostic for ischemia. 2. Complaints of chest pain and shortness of breath during stress testing. 3. No documented premature ventricular contractions during stress testing. 4. Report of nuclear images to follow in separate dictation. Dictated By: NEGIN SAM/ZOLTAN Conf#: [id number] DID#: [id number] CC: MARIA INES BARTON MD;*End*
--- NOTE | 2018-11-10 16:01 | PDOCDIS ---
Discharge Instructions DIAGNOSIS Discharge Diagnosis Syncope CONDITION 2 [id number] Patient Condition: [id number] Stable FOLLOW UP/APPOINTMENTS Follow-up Plan See Dr Walker in clinic to further evaluate your low heart rate MARIA INES BARTON MD Nov 10, 2018 16:01
--- NOTE | 2018-11-10 16:04 | DS ---
Date/Time of Note Date/Time of Note DATE: 11/10/18 TIME: 16:02 Discharge Summary Admission/Discharge Info Admit Date/Time Nov 10, 2018 at 08:05 Discharge Date/Time Discharge Diagnosis Syncope Patient Condition: Stable Hx of Present Illness 53 yo female without significant PMH presents with syncope and headache Has been in usual state of good health until a few days ago. Since then has syncopized twice. She has also developed headacehs Syncope occurred yesterday. She was standing at a bus stop. Began to feel lightheaded and clammy. Bent over then syncopized. Clearly had prodrome Came to ED yesterday where found to be hypotensive. Given 2 L NS and discharged. Tropin neg. Labs unremarkable. Head CT without acute pathology Today she returns because she continues to have headache. It is bilateral across forehead. Nonpulsatile. No visual symptoms or aura of any sort. Denies fevers Feels fatigued. Hospital Course 53 yo female without significant PMH who presents with headache and syncope, found to be bradycardic Headache: - Duration was concerning for migraine but other clinical characteristics made it sound more like tension. Head CT did not show concerning pathology and MRI was also wnl - Analgesics were provided - Neurology was consulted Syncope: - Concerning for primary cardiac etiology given bradycardia, though HR did go up to 60s - Normal cardiac structure on TTE - Normal TSH - Cardiology was consulted and recommended nuclear stress test which was normal - Patient will follow up with DR Walker to consider placement of PPM in clinic Home Meds Discontinued Scripts Ondansetron (Ondansetron Odt) 4 Mg Tab.rapdis, 4 MG PO Q6H PRN for NAUSEA AND/OR VOMITING, #10 TAB Prov:MITESH ANGELA MD 11/07/18 Ibuprofen* (Motrin*) 600 Mg Tab, 600 MG PO Q6H PRN for PAIN AND OR ELEVATED TEMP, #30 TAB Prov:MITESH ANGELA MD 11/07/18 Follow-up Plan See Dr Walker in clinic to further evaluate your low heart rate Primary Care Provider Dilshad Bland MD Pending Labs Laboratory Tests Test 11/09/18 21:45 11/10/18 06:22 Urine Opiates Screen Positive (NEGATIVE) Urine Barbiturates Negative (NEGATIVE) Urine Amphetamines Screen Negative (NEGATIVE) Urine Benzodiazepines Screen Negative (NEGATIVE) Urine Cocaine Screen Negative (NEGATIVE) Urine Cannabinoids Positive (NEGATIVE) Triglycerides Level 57 mg/dl (0-149) Cholesterol Level 140 mg/dl (100-200) LDL Cholesterol, Calculated 82 mg/dl HDL Cholesterol 47 mg/dl (37-92) Cholesterol/HDL Ratio 2.9 RATIO MARIA INES BARTON MD Nov 10, 2018 16:04
[2018-11-10] MEDS ORDERED: POLYETHYLENE GLYCOL 17 GM PACKET PO PRN (19:00)
[2018-11-11] VITALS (16 sets, daily range): BP systolic 97–134; BP diastolic 50–70; PULSE 37–56; RESP 16–22
[2018-11-11] MEDS: PANTOPRAZOLE (EC) 40 MG TAB PO SCH (06:33)
[2018-11-11] MEDS: NAPROXEN 500 MG TAB PO SCH ×2 (09:19→19:35)
--- NOTE | 2018-11-11 16:25 | CONS ---
Assessment/Plan Assessment/Plan Hospital Course (Demo Recall) IMPRESSION: 1. Bradycardia. Continue to follow to assess that this is etiology of the patient's syncope as she does have still low blood pressure at this time. No significant pauses noted.- mainly to low of 40's with stable BP. ON to high 30's. During day increase to 60's 2. Syncope, recurrent in the setting of bradycardia. We will continue to assess for ongoing bradycardia and possible etiology to the patient's syncope, need for treatment such as pacemaker. 3. Chest pain, assess for acute coronary syndrome with negative troponins x3 at this time. Recc: -Tele -Follow rhythm/rate closely. 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, stating that she cannot walk without sig sob and weakness and is "afraid will pass out again" -Attempted to have patient ambulate to assess chronotropic competence but stopped in middle of [facility] stating that she was too short of breath and week -Would continue eval/treatment with PT Consultation Date/Type/Reason Admit Date/Time Nov 10, 2018 at 08:05 Initial Consult Date 11/09/18 Type of Consult Cardiology Reason for Consultation bradycardia Requesting Provider: MARIA INES BARTON MD Date/Time of Note DATE: 11/11/18 TIME: 16:17 Exam/Review of Systems Vital Signs Vitals Vital Signs Date Temp Pulse Resp B/P (MAP) Pulse Ox O2 O2 Flow FiO2 Time Delivery Rate 11/11/18 98.1 56 22 134/56 15:50 (82) 11/11/18 96 Nasal 2.0 11:52 Cannula Intake and Output 11/10/18 11/10/18 11/11/18 1515:00 23:00 07:00 IntakeIntake Total 900 ml 500 ml BalanceBalance 900 ml 500 ml Exam Exam Review of Systems: CONSTITUTIONAL: No fevers, chills. PULMONARY: No sob CARDIOVASCULAR: No chest pain/palpitations GASTROINTESTINAL: No nausea/vomiting. GENITOURINARY: No hematuria/dysuria. MUSCULOSKELETAL: No myagias/arthalgias. PSYCHIATRIC: The patient denies depression. NEUROLOGIC: generalized weakness Constitutional: alert Psych: no complaints Head: normocephalic ENMT: mucosa pink and moist Neck: supple, jvd (9 cm water) Respiratory: clear to auscultation Cardiovascular: regular rate and rhythm Gastrointestinal: soft, non-tender Musculoskeletal: muscle tone (normal) Extremities: edema (none) Neurological: other (No focal deficits) Labs Result Diagram: 11/09/1843511/09/18435 Medications Medications Current Medications IV Flush (NS 3 ml) 3 ml PER PROTOCOL IV ; Start 11/08/18 at 18:30 Oxycodone/ Acetaminophen (Percocet (5/ 325)) 2 tab Q6H PRN PO .SEVERE PAIN 7-10 Last administered on 11/08/18 19:18; Admin Dose 1 TAB; Start 11/08/18 at 18:30 Ondansetron HCl (Zofran Inj) 4 mg Q4H PRN IV NAUSEA AND/OR VOMITING Last administered on 11/08/18at 22:40; Admin Dose 4 MG; Start 11/08/18 at 22:30 Acetaminophen (Tylenol Tab) 650 mg Q6H PRN PO MILD PAIN(1-3)OR ELEVATED TEMP; Start 11/08/18 at 22:30 Nitroglycerin (Nitroglycerin (Sl Tab) 0.4 Mg) 1 tab Q5M PRN SL ANGINA Last administered on 11/09/18at 06:43; Admin Dose 1 TAB; Start 11/09/18 at 06:00 Naproxen (Naprosyn) 500 mg BID PO Last administered on 11/11/18 09:19; Admin Dose 500 MG; Start 11/09/18 at 21:00 Pantoprazole (Protonix Tab) 40 mg DAILY@06 PO Last administered on 11/11/18at 06:33; Admin Dose 40 MG; Start 11/10/18 at 06:00 Polyethylene Glycol (Miralax) 17 gm DAILY PRN PO CONSTIPATION; Start 11/10/18 at 19:00 NEGIN GUAJARDO Nov 11, 2018 16:25
[2018-11-11] MEDS: NITROGLYCERIN (SL) 0.4 MG TAB SL PRN (19:35)
--- NOTE | 2018-11-11 20:12 | PN ---
Date/Time of Note Date/Time of Note DATE: 11/11/18 TIME: 20:08 Assessment/Plan VTE Prophylaxis Risk score (from Nsg)>0 risk: 1 SCD applied (from Nsg): Yes Pharmacological prophylaxis: heparin Lines/Catheters IV Catheter Type (from Nrsg): Saline Lock Urinary Cath still in place: No Assessment/Plan Hospital Course 53 yo female without significant PMH who presents with headache and syncope, found to be bradycardic Headache: - Benign, analgesics PRN Syncope with bradycardia: - Managemetn per cardiology. I suspect that her bradycardia is not contributing to syncope as her heart rate goes to 40s and she feels fine in house. Regardless, she is interested in pacemaker. Seems to be some secondary gain here in front of her family Result Diagram: 11/09/186 11/09/18435 Subjective 24 Hr Interval Summary Free Text/Dictation Patient very hesitant to leave. Feels weak. Advised that PPM is permanentn and may not make her feel better She prefers to stay in the hosptial Exam/Review of Systems Exam Vitals Vital Signs Date Temp Pulse Resp B/P (MAP) Pulse Ox O2 O2 Flow FiO2 Time Delivery Rate 11/11/18 98.0 53 18 108/57 99 19:29 (74) 11/11/18 2.0 16:52 11/11/18 Nasal 11:52 Cannula Intake and Output 11/10/18 11/10/18 11/11/18 1515:00 23:00 07:00 IntakeIntake Total 900 ml 500 ml BalanceBalance 900 ml 500 ml Constitutional: alert, oriented, well developed Psych: no complaints, nl mood/affect Head: normocephalic, atraumatic Eyes: nl conjunctiva, EOMI, nl lids, nl sclera, PERRL ENMT: nl external ears & nose, nl lips & teeth, nl nasal mucosa & septum Neck: supple, non-tender Respiratory: clear to auscultation, normal air movement Cardiovascular: regular rate and rhythm, nl pulses Gastrointestinal: soft, nl liver, spleen, non-tender Musculoskeletal: nl extremities to inspection, nl gait and stance Extremities: normal pulses Neurological: MORTGAGE OR LOAN UNDERWRITER II-XII intact, nl mental status, nl speech, nl strength Skin: nl turgor; No rash or lesions Lymph: nl lymph nodes Medications Medication Current Medications IV Flush (NS 3 ml) 3 ml PER PROTOCOL IV ; Start 11/08/18 at 18:30 Oxycodone/ Acetaminophen (Percocet (5/ 325)) 2 tab Q6H PRN PO .SEVERE PAIN 7-10 Last administered on 11/08/18 19:18; Admin Dose 1 TAB; Start 11/08/18 at 18:30 Ondansetron HCl (Zofran Inj) 4 mg Q4H PRN IV NAUSEA AND/OR VOMITING Last administered on 11/08/18at 22:40; Admin Dose 4 MG; Start 11/08/18 at 22:30 Acetaminophen (Tylenol Tab) 650 mg Q6H PRN PO MILD PAIN(1-3)OR ELEVATED TEMP; Start 11/08/18 at 22:30 Nitroglycerin (Nitroglycerin (Sl Tab) 0.4 Mg) 1 tab Q5M PRN SL ANGINA Last administered on 11/11/18 19:35; Admin Dose 1 TAB; Start 11/09/18 at 06:00 Naproxen (Naprosyn) 500 mg BID PO Last administered on 11/11/18 19:35; Admin Dose 500 MG; Start 11/09/18 at 21:00 Pantoprazole (Protonix Tab) 40 mg DAILY@06 PO Last administered on 11/11/18 06:33; Admin Dose 40 MG; Start 11/10/18 at 06:00 Polyethylene Glycol (Miralax) 17 gm DAILY PRN PO CONSTIPATION; Start 11/10/18 at 19:00 MARIA INES BARTON MD Nov 11, 2018 20:12
[2018-11-12] VITALS (8 sets, daily range): BP systolic 108–118; BP diastolic 55–68; PULSE 34–50; RESP 18–20
[2018-11-12] MEDS: PANTOPRAZOLE (EC) 40 MG TAB PO SCH (06:37)
[2018-11-12] MEDS: NAPROXEN 500 MG TAB PO SCH (09:26)
--- NOTE | 2018-11-12 14:12 | DS ---
Date/Time of Note Date/Time of Note DATE: 11/12/18 TIME: 14:12 Discharge Summary Admission/Discharge Info Admit Date/Time Nov 10, 2018 at 08:05 Discharge Date/Time Discharge Diagnosis Syncope Patient Condition: Stable Hx of Present Illness 53 yo female without significant PMH presents with syncope and headache Has been in usual state of good health until a few days ago. Since then has syncopized twice. She has also developed headacehs Syncope occurred yesterday. She was standing at a bus stop. Began to feel lightheaded and clammy. Bent over then syncopized. Clearly had prodrome Came to ED yesterday where found to be hypotensive. Given 2 L NS and discharged. Tropin neg. Labs unremarkable. Head CT without acute pathology Today she returns because she continues to have headache. It is bilateral across forehead. Nonpulsatile. No visual symptoms or aura of any sort. Denies fevers Feels fatigued. Hospital Course 53 yo female without significant PMH who presents with headache and syncope, found to be bradycardic Headache: - Benign, analgesics PRN Syncope with bradycardia: - Managemetn per cardiology. I suspect that her bradycardia is not contributing to syncope as her heart rate goes to 40s and she feels fine in house. Regardless, she is interested in pacemaker. She will follow up in clinic with Dr Salazar for further evaluation Home Meds Discontinued Scripts Ondansetron (Ondansetron Odt) 4 Mg Tab.rapdis, 4 MG PO Q6H PRN for NAUSEA AND/OR VOMITING, #10 TAB Prov:MITESH ANGELA MD 11/07/18 Ibuprofen* (Motrin*) 600 Mg Tab, 600 MG PO Q6H PRN for PAIN AND OR ELEVATED TEMP, #30 TAB Prov:MITESH ANGELA MD 11/07/18 Follow-up Plan See Dr Walker in clinic to further evaluate your low heart rate Primary Care Provider MD ORALIA Luna,MARIA INES Tinajero MD Nov 12, 2018 14:12
== END 2018-11-12 15:07 | disposition home or self-care (01) | DRG 312 ==
LOC: FTE 13:30 → TEL 16:33 → OBSVTOIN 11-10 08:05
PROVIDERS: ADMIT Internal Medicine; ATTEND Internal Medicine
DX: R55 Syncope and collapse (principal); R00.1 Bradycardia, unspecified; R51 Headache
CPT/HCPCS: 36415; 70496; 70498; 70551; 78452; 80048; 80053; 80061; 80307; 82550; 82553; 83036; 84439; 84443; 84484; 85025; 85610; 85730; 93005; 93017; 93306; 96374; 96375; 97161; G0378; A9500; A9505; J0461; J1885; J2270; J2405; J2785; J7030; Q9967

== ENCOUNTER 2018-11-18 22:09 | Inpatient (IN) | payer OTHER ==
[~2018-11-18] VITALS: Ht 154.9 cm; Wt 64.6 kg
[2018-11-19] VITALS (15 sets, daily range): BP systolic 98–118; BP diastolic 51–86; PULSE 39–83; RESP 16–18; Ht 154.9 cm; Wt 64.6 kg
[2018-11-19] MEDS ORDERED: NITROGLYCERIN (SL) 0.4 MG TAB SL PRN (02:30)
[2018-11-19] MEDS ORDERED: ONDANSETRON 4 MG INJ IV PRN (02:30)
[2018-11-19] MEDS ORDERED: NACL 0.9% 3 ML SYG IV SCH (02:30)
[2018-11-19] MEDS ORDERED: ALBUTEROL/IPRATROPIUM (NEB) 3 ML AMP HHN PRN (02:30)
--- NOTE | 2018-11-19 08:00 | HP ---
Date/Time of Note Date/Time of Note DATE: 11/19/18 TIME: 07:55 Assessment/Plan VTE Prophylaxis Pharmacological prophylaxis: heparin Lines/Catheters IV Catheter Type (from Nrs): Saline Lock Assessment/Plan Assessment/Plan 53-year-old female with recurrent syncopal episode, most likely secondary to bradycardia. During recent hospitalization, she had a 2D echo, head CT, CT Daisha of the head and neck as well as MRI of the brain and all were nondiagn ostic. Lowest documented heart rate here today has been 39. PLAN Continue telemetry monitoring Cardiology consult for bradycardia Result Diagram: 11/19/18 0313 11/19/18 0313 Results 24hrs Laboratory Tests Test 11/19/18 03:13 White Blood Count 7.7 Red Blood Count 4.20 Hemoglobin 13.5 Hematocrit 40.2 Mean Corpuscular Volume 95.7 Mean Corpuscular Hemoglobin 32.1 Mean Corpuscular Hemoglobin Concent 33.6 Red Cell Distribution Width 12.2 Platelet Count 248 # Mean Platelet Volume 9.9 Immature Granulocytes % 0.300 Neutrophils % 56.9 Lymphocytes % 31.2 Monocytes % 9.3 Eosinophils % 2.0 Basophils % 0.3 Nucleated Red Blood Cells % 0.0 Immature Granulocytes # 0.020 Neutrophils # 4.4 Lymphocytes # 2.4 Monocytes # 0.7 Eosinophils # 0.2 Basophils # 0.0 Nucleated Red Blood Cells # 0.0 Sodium Level 141 Potassium Level 4.1 Chloride Level 105 Carbon Dioxide Level 29 Anion Gap 7 Blood Urea Nitrogen 16 Creatinine 0.67 Est Glomerular Filtrat Rate mL/min > 60 Glucose Level 106 Calcium Level 9.4 Magnesium Level 1.9 Total Bilirubin 0.3 Direct Bilirubin 0.00 Indirect Bilirubin 0.3 Aspartate Amino Transf (AST/SGOT) 23 Alanine Aminotransferase (ALT/SGPT) 24 Alkaline Phosphatase 92 Creatine Kinase 48 Creatine Kinase Index 0.8 Creatinine Kinase MB (Mass) 0.38 Troponin I < 0.012 Total Protein 7.0 Albumin 3.7 Globulin 3.30 H Albumin/Globulin Ratio 1.12 HPI/ROS Admit Date/Time Admit Date/Time Nov 19, 2018 at 01:32 Hx of Present Illness This is a 53-year-old female with a history of syncope who presented to an outside hospital complaining of loss of consciousness. She was admitted here recently for similar symptoms after she had a syncopal episode while waiting at the bus stop. At that time she had a 2D echo, head CT, CT angiogram of head and neck as well as MRI of the brain and all were nondiagnostic. Patient however was noted to be bradycardic. She said after she was discharged from here, she did see her PCP who did an EKG and there was told that she was bradycardic. Yesterday, while she was waiting at the bus stop, she had a syncopal episode. She states she was feeling well prior to syncope, but afterwards she said she was dizzy. When asked about whether or not she had pain she said yes, but pointed in the epigastric area. At the outside facility, EKG without ST-T wave abnormalities. First troponin was negative. She was transferred to [facility] for insurance reason. While here, the lowest documented heart rate has been 39. PMH/Family/Social Past Medical History Medical History: other (See HPI) Medications Current Medications IV Flush (NS 3 ml) 3 ml PER PROTOCOL IV ; Start 11/19/18 at 02:30 Ondansetron HCl (Zofran Inj) 4 mg Q6H PRN IV NAUSEA/VOMITING; Start 11/19/18 at 02:30 Nitroglycerin (Nitroglycerin (Sl Tab) 0.4 Mg) 1 tab Q5M PRN SL .CHEST PAIN; Start 11/19/18 at 02:30 Acetaminophen (Tylenol Tab) 650 mg Q6H PRN PO .PAIN 1-3 OR TEMP; Start 11/19/18 at 02:30 Heparin Sodium (Porcine) (Heparin (5000 Units/1ml)) 5,000 unit Q12 SC ; Start 11/19/18 at 09:00 Albuterol/ Ipratropium (Duoneb) 3 ml Q2H RESP THERAPY PRN HHN SHORTNESS OF BREATH; Start 11/19/18 at 02:30 Coded Allergies: No Known Allergy (Unverified , 11/08/18) Past Surgical History Past Surgical Hx: other (See HPI) Family History Significant Family History: no pertinent family hx Social History Alcohol Use: none Smoking Status: Never smoker Drug Use: none Exam/Review of Systems Vital Signs Vitals Vital Signs Date Temp Pulse Resp B/P (MAP) Pulse Ox O2 O2 Flow FiO2 Time Delivery Rate 11/19/18 61 108/60 06:31 (76) 64 112/66 (81) 83 99/64 (76) 11/19/18 97.6 18 97 Room Air 04:00 Intake and Output 11/18/18 11/18/18 11/19/18 1515:00 23:00 07:00 IntakeIntake Total 400 ml BalanceBalance 400 ml Exam Constitutional: alert, oriented, well developed Head: normocephalic, atraumatic Eyes: EOMI, PERRL Respiratory: clear to auscultation, normal air movement Cardiovascular: other (Bradycardic regular rhythm) Gastrointestinal: soft, non-tender Extremities: normal pulses DUC SALAZAR MD Nov 19, 2018 08:00
[2018-11-19] MEDS: HEPARIN 5,000 UNIT/1 ML VIAL SC SCH ×2 (08:25→21:30)
--- NOTE | 2018-11-19 11:43 | PN ---
Date/Time of Note Date/Time of Note DATE: 11/19/18 TIME: 11:41 Assessment/Plan VTE Prophylaxis Risk score (from Ns)>0 risk: 1 SCD applied (from Ns): Yes Pharmacological prophylaxis: heparin Lines/Catheters IV Catheter Type (from [facility]): Saline Lock Assessment/Plan Hospital Course 1. Syncope secondary to bradycardia Patient has had multiple episodes of syncope related to bradycardia Cardiology consultation with Dr. Walker has been obtained Continue court recording monitor Prophylaxis: Heparin Result Diagram: 11/19/18 0313 11/19/18 0313 Results 24hrs Laboratory Tests Test 11/19/18 03:13 11/19/18 08:11 White Blood Count 7.7 Red Blood Count 4.20 Hemoglobin 13.5 Hematocrit 40.2 Mean Corpuscular Volume 95.7 Mean Corpuscular Hemoglobin 32.1 Mean Corpuscular Hemoglobin Concent 33.6 Red Cell Distribution Width 12.2 Platelet Count 248 # Mean Platelet Volume 9.9 Immature Granulocytes % 0.300 Neutrophils % 56.9 Lymphocytes % 31.2 Monocytes % 9.3 Eosinophils % 2.0 Basophils % 0.3 Nucleated Red Blood Cells % 0.0 Immature Granulocytes # 0.020 Neutrophils # 4.4 Lymphocytes # 2.4 Monocytes # 0.7 Eosinophils # 0.2 Basophils # 0.0 Nucleated Red Blood Cells # 0.0 Sodium Level 141 Potassium Level 4.1 Chloride Level 105 Carbon Dioxide Level 29 Anion Gap 7 Blood Urea Nitrogen 16 Creatinine 0.67 Est Glomerular Filtrat Rate mL/min > 60 Glucose Level 106 Calcium Level 9.4 Magnesium Level 1.9 Total Bilirubin 0.3 Direct Bilirubin 0.00 Indirect Bilirubin 0.3 Aspartate Amino Transf (AST/SGOT) 23 Alanine Aminotransferase (ALT/SGPT) 24 Alkaline Phosphatase 92 Creatine Kinase 48 47 Creatine Kinase Index 0.8 0.8 Creatinine Kinase MB (Mass) 0.38 0.39 Troponin I < 0.012 < 0.012 Total Protein 7.0 Albumin 3.7 Globulin 3.30 H Albumin/Globulin Ratio 1.12 Subjective 24 Hr Interval Summary Constitutional: no complaints Exam/Review of Systems Exam Vitals Vital Signs Date Temp Pulse Resp B/P (MAP) Pulse Ox O2 O2 Flow FiO2 Time Delivery Rate 11/19/18 54 08:23 11/19/18 97.9 18 111/56 98 Room Air 08:09 (74) Intake and Output 11/18/18 11/18/18 11/19/18 1515:00 23:00 07:00 IntakeIntake Total 400 ml BalanceBalance 400 ml Constitutional: alert, oriented Respiratory: clear to auscultation Cardiovascular: regular rate and rhythm Gastrointestinal: soft; No distended Musculoskeletal: nl extremities to inspection Results Results 24hrs Laboratory Tests Test 11/19/18 03:13 11/19/18 08:11 White Blood Count 7.7 Red Blood Count 4.20 Hemoglobin 13.5 Hematocrit 40.2 Mean Corpuscular Volume 95.7 Mean Corpuscular Hemoglobin 32.1 Mean Corpuscular Hemoglobin Concent 33.6 Red Cell Distribution Width 12.2 Platelet Count 248 # Mean Platelet Volume 9.9 Immature Granulocytes % 0.300 Neutrophils % 56.9 Lymphocytes % 31.2 Monocytes % 9.3 Eosinophils % 2.0 Basophils % 0.3 Nucleated Red Blood Cells % 0.0 Immature Granulocytes # 0.020 Neutrophils # 4.4 Lymphocytes # 2.4 Monocytes # 0.7 Eosinophils # 0.2 Basophils # 0.0 Nucleated Red Blood Cells # 0.0 Sodium Level 141 Potassium Level 4.1 Chloride Level 105 Carbon Dioxide Level 29 Anion Gap 7 Blood Urea Nitrogen 16 Creatinine 0.67 Est Glomerular Filtrat Rate mL/min > 60 Glucose Level 106 Calcium Level 9.4 Magnesium Level 1.9 Total Bilirubin 0.3 Direct Bilirubin 0.00 Indirect Bilirubin 0.3 Aspartate Amino Transf (AST/SGOT) 23 Alanine Aminotransferase (ALT/SGPT) 24 Alkaline Phosphatase 92 Creatine Kinase 48 47 Creatine Kinase Index 0.8 0.8 Creatinine Kinase MB (Mass) 0.38 0.39 Troponin I < 0.012 < 0.012 Total Protein 7.0 Albumin 3.7 Globulin 3.30 H Albumin/Globulin Ratio 1.12 Medications Medication Current Medications IV Flush (NS 3 ml) 3 ml PER PROTOCOL IV ; Start 11/19/18 at 02:30 Ondansetron HCl (Zofran Inj) 4 mg Q6H PRN IV NAUSEA/VOMITING; Start 11/19/18 at 02:30 Nitroglycerin (Nitroglycerin (Sl Tab) 0.4 Mg) 1 tab Q5M PRN SL .CHEST PAIN; Start 11/19/18 at 02:30 Acetaminophen (Tylenol Tab) 650 mg Q6H PRN PO .PAIN 1-3 OR TEMP; Start 11/19/18 at 02:30 Heparin Sodium (Porcine) (Heparin (5000 Units/1ml)) 5,000 unit Q12 SC Last administered on 11/19/18at 08:25; Admin Dose 5,000 UNIT; Start 11/19/18 at 09:00 Albuterol/ Ipratropium (Duoneb) 3 ml Q2H RESP THERAPY PRN HHN SHORTNESS OF BREATH; Start 11/19/18 at 02:30 ABRIL VELASCO Nov 19, 2018 11:43
[2018-11-20] VITALS (11 sets, daily range): BP systolic 96–113; BP diastolic 54–66; PULSE 49–90; RESP 16–19
[2018-11-20] MEDS: ACETAMINOPHEN 325 MG TAB PO PRN (08:09)
[2018-11-20] MEDS: HEPARIN 5,000 UNIT/1 ML VIAL SC SCH ×2 (08:20→21:06)
--- NOTE | 2018-11-20 13:23 | CONS ---
Consultation Date/Type/Reason Admit Date/Time Nov 19, 2018 at 01:32 Type of Consult Cardiology Date/Time of Note DATE: 11/20/18 TIME: 13:20 Hx of Present Illness 53 yo with recurrent syncope - suspect vaso-vagal etiology - unclear aif bradycardia if the initial event - will discuss with Dr. Walker if 30-day event monitor vs loop might be appropriate. Pacer might be a little too aggressive. Will ask for endocrine consult Full note dictated # [id number] Past Medical History Home Meds No Active Prescriptions or Reported Meds Medications Current Medications IV Flush (NS 3 ml) 3 ml PER PROTOCOL IV ; Start 11/19/18 at 02:30 Ondansetron HCl (Zofran Inj) 4 mg Q6H PRN IV NAUSEA/VOMITING; Start 11/19/18 at 02:30 Nitroglycerin (Nitroglycerin (Sl Tab) 0.4 Mg) 1 tab Q5M PRN SL .CHEST PAIN; Start 11/19/18 at 02:30 Acetaminophen (Tylenol Tab) 650 mg Q6H PRN PO .PAIN 1-3 OR TEMP Last administered on 11/20/18at 08:09; Admin Dose 650 MG; Start 11/19/18 at 02:30 Heparin Sodium (Porcine) (Heparin (5000 Units/1ml)) 5,000 unit Q12 SC Last administered on 11/20/18at 08:20; Admin Dose 5,000 UNIT; Start 11/19/18 at 09:00 Albuterol/ Ipratropium (Duoneb) 3 ml Q2H RESP THERAPY PRN HHN SHORTNESS OF BREATH; Start 11/19/18 at 02:30 Allergies: Coded Allergies: No Known Allergy (Unverified , 11/08/18) Past Surgical History Past Surgical Hx: other Social History Alcohol Use: none Smoking Status: Never smoker Drug Use: none Exam/Review of Systems Vital Signs Vitals Vital Signs Date Temp Pulse Resp B/P (MAP) Pulse Ox O2 O2 Flow FiO2 Time Delivery Rate 11/20/18 49 12:22 11/20/18 97.7 19 102/63 98 11:08 (76) 11/20/18 Room Air 04:01 Intake and Output 11/19/18 11/19/18 11/20/18 1515:00 23:00 07:00 IntakeIntake Total 600 ml 400 ml BalanceBalance 600 ml 400 ml Labs Result Diagram: 11/20/18 0517 11/20/18 0517 Results 24hrs Laboratory Tests Test 11/20/18 05:17 White Blood Count 6.1 # Red Blood Count 4.10 L Hemoglobin 13.0 Hematocrit 39.1 Mean Corpuscular Volume 95.4 Mean Corpuscular Hemoglobin 31.7 Mean Corpuscular Hemoglobin Concent 33.2 Red Cell Distribution Width 12.2 Platelet Count 244 Mean Platelet Volume 10.2 Immature Granulocytes % 0.200 Neutrophils % 50.0 Lymphocytes % 37.5 Monocytes % 10.0 Eosinophils % 2.0 Basophils % 0.3 Nucleated Red Blood Cells % 0.0 Immature Granulocytes # 0.010 Neutrophils # 3.0 Lymphocytes # 2.3 Monocytes # 0.6 Eosinophils # 0.1 Basophils # 0.0 Nucleated Red Blood Cells # 0.0 Sodium Level 140 Potassium Level 4.2 Chloride Level 105 Carbon Dioxide Level 30 Anion Gap 5 Blood Urea Nitrogen 15 Creatinine 0.65 Est Glomerular Filtrat Rate mL/min > 60 Glucose Level 88 Calcium Level 9.0 Phosphorus Level 4.1 Magnesium Level 1.8 Medications Medications Current Medications IV Flush (NS 3 ml) 3 ml PER PROTOCOL IV ; Start 11/19/18 at 02:30 Ondansetron HCl (Zofran Inj) 4 mg Q6H PRN IV NAUSEA/VOMITING; Start 11/19/18 at 02:30 Nitroglycerin (Nitroglycerin (Sl Tab) 0.4 Mg) 1 tab Q5M PRN SL .CHEST PAIN; Start 11/19/18 at 02:30 Acetaminophen (Tylenol Tab) 650 mg Q6H PRN PO .PAIN 1-3 OR TEMP Last administered on 11/20/18at 08:09; Admin Dose 650 MG; Start 11/19/18 at 02:30 Heparin Sodium (Porcine) (Heparin (5000 Units/1ml)) 5,000 unit Q12 SC Last administered on 11/20/18at 08:20; Admin Dose 5,000 UNIT; Start 11/19/18 at 09:00 Albuterol/ Ipratropium (Duoneb) 3 ml Q2H RESP THERAPY PRN HHN SHORTNESS OF BREATH; Start 11/19/18 at 02:30 ESTEE COLLADO MD Nov 20, 2018 13:23
--- NOTE | 2018-11-20 14:20 | CONS ---
Assessment/Plan Assessment/Plan Problems: (1) Syncope and collapse Status: Chronic Comment: She is already had one set of thyroid function tests to look at the bradycardia. I will go ahead and repeat those although I doubt that there is a significant abnormality there. This does not necessarily hold that this would be an adrenal or cortisol or aldosterone issue, but I will go ahead and check it to be thorough. There is a possibility that this could be a variant presentation for something else such as a migraine syndrome, or even a seizure disorder. However that would not explain the bradycardia (2) Migraine syndrome Status: Chronic Comment: Trial of low-dose topiramate Consultation Date/Type/Reason Admit Date/Time Nov 19, 2018 at 01:32 Date of Consultation: Nov 20, 2018 Type of Consult Endocrinology Reason for Consultation Rule out adrenal issue Requesting Provider: ESTEE COLLADO MD Date/Time of Note DATE: 11/20/18 TIME: 14:15 Hx of Present Illness This is a [facility] admission for this 53-year-old single -[place] female who has a history of syncope. She reports that her syncope started in roughly 2007. She had never had it formally evaluated but it has been accelerating in the recent past and she is recently chosen to have medical evaluation. Please note she does have a history remotely of closed head trauma, and post concussive migraine syndrome. She does not use tobacco products reports she uses marijuana products once a month denies any other types of recreational drugs. She has not been on any type of beta blockade or calcium channel blockers or clonidine. He has not been on any type of antidepressants or other drugs associated with AV natalia conduction. Constitutional: no complaints Eyes: no complaints ENT: no complaints Respiratory: no complaints Cardiovascular: no complaints Gastrointestinal: no complaints Genitourinary: no complaints Musculoskeletal: no complaints Neurologic: headache (Chronic repetitive headache syndrome with 6 headache days per month), syncope (Repetitive syncope without significant prodrome) Endocrine: no complaints Past Medical History Medical History: other (History of closed head trauma; chronic repetitive headache syndrome with 6 headache days per month) Home Meds No Active Prescriptions or Reported Meds Medications Current Medications IV Flush (NS 3 ml) 3 ml PER PROTOCOL IV ; Start 11/19/18 at 02:30 Ondansetron HCl (Zofran Inj) 4 mg Q6H PRN IV NAUSEA/VOMITING; Start 11/19/18 at 02:30 Nitroglycerin (Nitroglycerin (Sl Tab) 0.4 Mg) 1 tab Q5M PRN SL .CHEST PAIN; Start 11/19/18 at 02:30 Acetaminophen (Tylenol Tab) 650 mg Q6H PRN PO .PAIN 1-3 OR TEMP Last administered on 11/20/18at 08:09; Admin Dose 650 MG; Start 11/19/18 at 02:30 Heparin Sodium (Porcine) (Heparin (5000 Units/1ml)) 5,000 unit Q12 SC Last administered on 11/20/18at 08:20; Admin Dose 5,000 UNIT; Start 11/19/18 at 09:00 Albuterol/ Ipratropium (Duoneb) 3 ml Q2H RESP THERAPY PRN HHN SHORTNESS OF BREATH; Start 11/19/18 at 02:30 Allergies: Coded Allergies: No Known Allergy (Unverified , 11/08/18) Past Surgical History Past Surgical Hx: other Family History Significant Family History: hypertension Social History Born in [facility] and raised here. Had previously worked for the [employer] in [employer]. Alcohol Use: none Smoking Status: Never smoker Drug Use: marijuana (2 times a month) Exam/Review of Systems Exam Vitals Vital Signs Date Temp Pulse Resp B/P (MAP) Pulse Ox O2 O2 Flow FiO2 Time Delivery Rate 11/20/18 49 12:22 11/20/18 97.7 19 102/63 98 11:08 (76) 11/20/18 Room Air 04:01 Intake and Output 11/19/18 11/19/18 11/20/18 1515:00 23:00 07:00 IntakeIntake Total 600 ml 400 ml BalanceBalance 600 ml 400 ml Constitutional: alert, oriented Neck: supple, non-tender Respiratory: clear to auscultation, normal air movement Cardiovascular: regular rate and rhythm, nl pulses Results Result Diagram: 11/20/1817 11/20/1817 Results 24hrs Laboratory Tests Test 11/20/18 05:17 White Blood Count 6.1 # Red Blood Count 4.10 L Hemoglobin 13.0 Hematocrit 39.1 Mean Corpuscular Volume 95.4 Mean Corpuscular Hemoglobin 31.7 Mean Corpuscular Hemoglobin Concent 33.2 Red Cell Distribution Width 12.2 Platelet Count 244 Mean Platelet Volume 10.2 Immature Granulocytes % 0.200 Neutrophils % 50.0 Lymphocytes % 37.5 Monocytes % 10.0 Eosinophils % 2.0 Basophils % 0.3 Nucleated Red Blood Cells % 0.0 Immature Granulocytes # 0.010 Neutrophils # 3.0 Lymphocytes # 2.3 Monocytes # 0.6 Eosinophils # 0.1 Basophils # 0.0 Nucleated Red Blood Cells # 0.0 Sodium Level 140 Potassium Level 4.2 Chloride Level 105 Carbon Dioxide Level 30 Anion Gap 5 Blood Urea Nitrogen 15 Creatinine 0.65 Est Glomerular Filtrat Rate mL/min > 60 Glucose Level 88 Calcium Level 9.0 Phosphorus Level 4.1 Magnesium Level 1.8 Medications Medication Current Medications IV Flush (NS 3 ml) 3 ml PER PROTOCOL IV ; Start 11/19/18 at 02:30 Ondansetron HCl (Zofran Inj) 4 mg Q6H PRN IV NAUSEA/VOMITING; Start 11/19/18 at 02:30 Nitroglycerin (Nitroglycerin (Sl Tab) 0.4 Mg) 1 tab Q5M PRN SL .CHEST PAIN; Start 11/19/18 at 02:30 Acetaminophen (Tylenol Tab) 650 mg Q6H PRN PO .PAIN 1-3 OR TEMP Last administered on 11/20/18at 08:09; Admin Dose 650 MG; Start 11/19/18 at 02:30 Heparin Sodium (Porcine) (Heparin (5000 Units/1ml)) 5,000 unit Q12 SC Last administered on 11/20/18at 08:20; Admin Dose 5,000 UNIT; Start 11/19/18 at 09:00 Albuterol/ Ipratropium (Duoneb) 3 ml Q2H RESP THERAPY PRN HHN SHORTNESS OF BREATH; Start 11/19/18 at 02:30 ASTON ARIAS MD Nov 20, 2018 14:20
--- NOTE | 2018-11-20 14:49 | CONS ---
DATE OF ADMISSION: 11/19/2018 DATE OF CONSULTATION: 11/20/2018 REASON FOR CONSULTATION: Recurrent syncope. HISTORY OF PRESENT ILLNESS: Ms. Montemayor is a 53-year-old middle-aged white been asked to see by Dr. Caroline mensah and Dr. Salazar. The patient was here recently. She said that she had a syncopal episode of unc lear significance. [place] when she felt hot and blacked o ut and she required "CPR" by her boyfriend. Then she had another admission with near syncope. The p atient says she has been doing well recently, but recently she began to have those episodes of weakne ss and syncope. The patient is in sinus rhythm on her EKG. There is no evidence of conduction abnor mality. The patient did have some bradycardia into her 40s while here in the hospital, but there are no pauses. The patient says that she is aware of the symptoms, but does not know what to do with it . I had a very long discussion about the symptoms. I think her presentation is more consistent with vasovagal syncope; however, she does exhibit some episodes of bradycardia for now. There is no julio r association with bradycardia and hypertension as the patient has been bradycardic here and she did not have any hypotensive episodes. I think the next course of action would be for patient to have a more extensive monitoring. I had a very long discussion with the patient and offered her options. I think the best option would be 30-day event monitor which would be the least invasive procedure as a lternatives of mine would include loop recorder versus a pacemaker. I think the pacemaker would be a procedure with some degree of risk and I am not completely confident that this will alleviate her sy mptoms. I will discuss the situation further with Dr. Walker and see if he agrees at this particula r point extensive monitoring and loop recorder would be the best option. Other than that we can consi major treating her for vasovagal syncope with fluid expansion, as well as Florinef. This I will discus s with Dr. Walker, as well. PAST MEDICAL HISTORY: Prior episodes of syncope, history of bradycardia. ALLERGIES: No known drug allergies. SOCIAL HISTORY: The patient does not smoke. Does not drink. Does not use drugs. FAMILY HISTORY: Negative for sudden cardiac or premature coronary artery disease. MEDICATIONS: The patient is on subcutaneous heparin for DVT prophylaxis, nitroglycerins and albutero l. REVIEW OF SYSTEMS: CONSTITUTIONAL: No fevers, no chills, no recent weight change. HEENT: No JVD. Currently, the patient does feel tired. CARDIAC: No chest pain reported. RESPIRATORY: No shortness of breath. GASTROINTESTINAL: No nausea, vomiting. GENITOURINARY: No dysuria or hematuria. NEUROLOGIC: No focal neurologic deficits. HEMATOLOGIC: No easy bruising. PSYCHIATRIC: Known history of psychiatric disease. PHYSICAL EXAMINATION: VITAL SIGNS: Temperature is 97.6, heart rate is 49, blood pressure is 102/63. GENERAL: She is a well-nourished woman in no acute distress, alert and oriented x3, aware of her con dition. HEAD: Normocephalic, atraumatic. Extraocular movements are intact. NECK: Supple. JVD 6-7 cm. There is no lymphadenopathy, no thyromegaly. HEART: Regular, soft holosystolic murmur. PMI is nondisplaced. I do not hear an S3. LUNGS: Clear to auscultation. ABDOMEN: Distended, bowel sounds are present. There is no hepatosplenomegaly. EXTREMITIES: Show no clubbing, cyanosis, or edema. LABORATORY DATA: White blood cell count 6.1, hemoglobin 7.0, platelets 244. INR is 1.1. Sodium 140 , potassium 4.2, BUN is 15, creatinine 0.6. Troponin is negative at 0.012. ASSESSMENT AND PLAN: 1. Syncope. Patient with recurrent syncope, etiology is unclear. This appears to be new event that she has never had this passing out before. She is borderline bradycardic but she does not appear to have a clear association of bradycardia and hypotension. This is more consistent with orthostatic s yndrome of some nature, possibly POTS syndrome versus vasovagal bradycardia. I think for now, conser vative therapy will be expected. I will discuss with Dr. Walker whether long-term monitoring with a 30-day event monitor versus loop recorder is indicated. I think the pacemaker at this point would b e somewhat of an aggressive procedure as there is no documented evidence of bradycardia associated hy potension at this particular point. 2. I will also recommend for patient to have an endocrinology evaluation if possible. Dictated By: ESTEE COLLADO MD ML/NTS Conf#: [id number] DID#: [id number] CC: DUC SALAZAR MD;*EndCC*
[2018-11-20] MEDS ORDERED: COSYNTROPIN 0.25 MG INJ IV ONE (16:05)
--- NOTE | 2018-11-20 16:43 | PN ---
Date/Time of Note Date/Time of Note DATE: 11/20/18 TIME: 16:39 Assessment/Plan VTE Prophylaxis Risk score (from Nsg)>0 risk: 1 Pharmacological prophylaxis: heparin Lines/Catheters IV Catheter Type (from Nrsg): Saline Lock Urinary Cath still in place: No Assessment/Plan Hospital Course 1. Syncope secondary to bradycardia Patient has had multiple episodes of syncope related to bradycardia Cardiology consultation with Dr. Walker appreciated, plan at this time is for conservative care, no clear association with bradycardia and hypotension has been documented and hence pacemaker not indicated at this time Cardiology has requested endocrinology consultation which is appreciated, follow-up on cortisol and aldosterone, recent thyroid panel was normal Continue residential monitor 2. Migraine Topamax has been started Prophylaxis: Heparin DC planning: Anticipate DC home in 1-2 days Result Diagram: 11/20/18 0517 11/20/18 0517 Results 24hrs Laboratory Tests Test 11/20/18 05:17 White Blood Count 6.1 # Red Blood Count 4.10 L Hemoglobin 13.0 Hematocrit 39.1 Mean Corpuscular Volume 95.4 Mean Corpuscular Hemoglobin 31.7 Mean Corpuscular Hemoglobin Concent 33.2 Red Cell Distribution Width 12.2 Platelet Count 244 Mean Platelet Volume 10.2 Immature Granulocytes % 0.200 Neutrophils % 50.0 Lymphocytes % 37.5 Monocytes % 10.0 Eosinophils % 2.0 Basophils % 0.3 Nucleated Red Blood Cells % 0.0 Immature Granulocytes # 0.010 Neutrophils # 3.0 Lymphocytes # 2.3 Monocytes # 0.6 Eosinophils # 0.1 Basophils # 0.0 Nucleated Red Blood Cells # 0.0 Sodium Level 140 Potassium Level 4.2 Chloride Level 105 Carbon Dioxide Level 30 Anion Gap 5 Blood Urea Nitrogen 15 Creatinine 0.65 Est Glomerular Filtrat Rate mL/min > 60 Glucose Level 88 Calcium Level 9.0 Phosphorus Level 4.1 Magnesium Level 1.8 Thyroid Stimulating Hormone (TSH) 1.740 Free Thyroxine 0.93 Free Triiodothyronine (T3) pg/mL 4.38 Subjective 24 Hr Interval Summary Constitutional: no complaints Exam/Review of Systems Exam Vitals Vital Signs Date Temp Pulse Resp B/P (MAP) Pulse Ox O2 O2 Flow FiO2 Time Delivery Rate 11/20/18 98.4 84 19 96/54 (68) 99 15:24 11/20/18 Room Air 04:01 Intake and Output 11/19/18 11/19/18 11/20/18 1515:00 23:00 07:00 IntakeIntake Total 600 ml 400 ml BalanceBalance 600 ml 400 ml Constitutional: alert, oriented Respiratory: clear to auscultation Cardiovascular: regular rate and rhythm Gastrointestinal: soft; No distended Musculoskeletal: nl extremities to inspection Results Results 24hrs Laboratory Tests Test 11/20/18 05:17 White Blood Count 6.1 # Red Blood Count 4.10 L Hemoglobin 13.0 Hematocrit 39.1 Mean Corpuscular Volume 95.4 Mean Corpuscular Hemoglobin 31.7 Mean Corpuscular Hemoglobin Concent 33.2 Red Cell Distribution Width 12.2 Platelet Count 244 Mean Platelet Volume 10.2 Immature Granulocytes % 0.200 Neutrophils % 50.0 Lymphocytes % 37.5 Monocytes % 10.0 Eosinophils % 2.0 Basophils % 0.3 Nucleated Red Blood Cells % 0.0 Immature Granulocytes # 0.010 Neutrophils # 3.0 Lymphocytes # 2.3 Monocytes # 0.6 Eosinophils # 0.1 Basophils # 0.0 Nucleated Red Blood Cells # 0.0 Sodium Level 140 Potassium Level 4.2 Chloride Level 105 Carbon Dioxide Level 30 Anion Gap 5 Blood Urea Nitrogen 15 Creatinine 0.65 Est Glomerular Filtrat Rate mL/min > 60 Glucose Level 88 Calcium Level 9.0 Phosphorus Level 4.1 Magnesium Level 1.8 Thyroid Stimulating Hormone (TSH) 1.740 Free Thyroxine 0.93 Free Triiodothyronine (T3) pg/mL 4.38 Medications Medication Current Medications IV Flush (NS 3 ml) 3 ml PER PROTOCOL IV ; Start 11/19/18 at 02:30 Ondansetron HCl (Zofran Inj) 4 mg Q6H PRN IV NAUSEA/VOMITING; Start 11/19/18 at 02:30 Nitroglycerin (Nitroglycerin (Sl Tab) 0.4 Mg) 1 tab Q5M PRN SL .CHEST PAIN; Start 11/19/18 at 02:30 Acetaminophen (Tylenol Tab) 650 mg Q6H PRN PO .PAIN 1-3 OR TEMP Last administered on 11/20/18at 08:09; Admin Dose 650 MG; Start 11/19/18 at 02:30 Heparin Sodium (Porcine) (Heparin (5000 Units/1ml)) 5,000 unit Q12 SC Last administered on 11/20/18at 08:20; Admin Dose 5,000 UNIT; Start 11/19/18 at 09:00 Albuterol/ Ipratropium (Duoneb) 3 ml Q2H RESP THERAPY PRN HHN SHORTNESS OF BREATH; Start 11/19/18 at 02:30 Topiramate (Topamax) 25 mg BID PO ; Start 11/20/18 at 21:00 ABRIL VELASCO Nov 20, 2018 16:43
[2018-11-21] VITALS (14 sets, daily range): BP systolic 98–120; BP diastolic 52–68; PULSE 50–95; RESP 18–20
[2018-11-21] MEDS: ACETAMINOPHEN 325 MG TAB PO PRN ×2 (00:26→17:49)
[2018-11-21] MEDS: TOPIRAMATE 25 MG TAB PO SCH ×3 (00:26→20:08)
[2018-11-21] MEDS: HEPARIN 5,000 UNIT/1 ML VIAL SC SCH ×2 (08:46→20:54)
--- NOTE | 2018-11-21 09:57 | PN ---
Date/Time of Note Date/Time of Note DATE: 11/21/18 TIME: 09:55 Assessment/Plan VTE Prophylaxis Risk score (from Ns)>0 risk: 1 SCD applied (from Ns): Yes Pharmacological prophylaxis: NA/contraindicated Pharm contraindication: low risk/ambulating Lines/Catheters [facility] Saline Lock Urinary Cath still in place: No Assessment/Plan Hospital Course s: feels well no new complaints o : General: A&O x3, answering questions appropriately HEENT: NC/ AT. PERRL. EOM intact Neck: supple CVS: S1, S2, RRR. no murmurs. no pain on chest wall palpation Lungs: CTA b/l. no wheezing or rhonchi Abd: soft, nontender, +BS Ext: moving all extremities skin: no rashes assessment and plan: 1. Syncope secondary to bradycardia Patient has had multiple episodes of syncope related to bradycardia Cardiology consultation with Dr. 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 Migraine Topamax has been started Prophylaxis: Heparin Dispo: f/u cardio final recs, re: possible 30 day monitoring, if no further inpatient interventions, will plan to d/c. Result Diagram: 11/20/1851611/20/18516 Results 24hrs Laboratory Tests Test 11/20/18 16:00 11/20/18 16:30 11/20/18 17:03 11/20/18 17:40 Random Cortisol 3.6 2.9 2.5 15.8 Test 11/20/18 18:12 Random Cortisol 22.4 Exam/Review of Systems Exam Vitals Vital Signs Date Temp Pulse Resp B/P (MAP) Pulse Ox O2 O2 Flow FiO2 Time Delivery Rate 11/21/18 97.5 73 18 111/64 99 Room Air 08:10 (80) Intake and Output 11/20/18 11/20/18 11/21/18 1515:00 23:00 07:00 IntakeIntake Total 1000 ml 600 ml BalanceBalance 1000 ml 600 ml Results Results 24hrs Laboratory Tests Test 11/20/18 16:00 11/20/18 16:30 11/20/18 17:03 11/20/18 17:40 Random Cortisol 3.6 2.9 2.5 15.8 Test 11/20/18 18:12 Random Cortisol 22.4 Medications Medication Current Medications IV Flush (NS 3 ml) 3 ml PER PROTOCOL IV ; Start 11/19/18 at 02:30 Ondansetron HCl (Zofran Inj) 4 mg Q6H PRN IV NAUSEA/VOMITING; Start 11/19/18 at 02:30 Nitroglycerin (Nitroglycerin (Sl Tab) 0.4 Mg) 1 tab Q5M PRN SL .CHEST PAIN; Start 11/19/18 at 02:30 Acetaminophen (Tylenol Tab) 650 mg Q6H PRN PO .PAIN 1-3 OR TEMP Last administered on 11/21/18at 00:26; Admin Dose 650 MG; Start 11/19/18 at 02:30 Heparin Sodium (Porcine) (Heparin (5000 Units/1ml)) 5,000 unit Q12 SC Last administered on 11/21/18at 08:46; Admin Dose 5,000 UNIT; Start 11/19/18 at 09:00 Albuterol/ Ipratropium (Duoneb) 3 ml Q2H RESP THERAPY PRN HHN SHORTNESS OF BREATH; Start 11/19/18 at 02:30 Topiramate (Topamax) 25 mg BID PO Last administered on 11/21/18at 08:16; Admin Dose 25 MG; Start 11/20/18 at 21:00 DAVID NOVA Nov 21, 2018 09:57
--- NOTE | 2018-11-21 11:59 | CONS ---
Assessment/Plan Assessment/Plan Hospital Course (Demo Recall) IMP: 1.syncope-recurrent with HR's currently in 60-70's and at night when sleeping to 40's and even high 30's, Stable BP. Neg trop's and bormal stress test last admit. ? vasovagal 2.chest pain-on admit to OSH. Now resolved. Neg trops this admit anf normal stress test last admit. No ischemia/No scar/NL EF 3.MIgraine BLAKE 4.bradycardia- to 40's at night and even high 30's when sleeping. stable BP. NL Thyroid studies Recc: -s/p EP eval with reccs for event or loop monitor -will monitor overnight to assure no sig arrythmia Consultation Date/Type/Reason Admit Date/Time Nov 20, 2018 at 16:38 Initial Consult Date 11/20/18 Type of Consult Cardiology Reason for Consultation syncope Requesting Provider: ESTEE COLLADO MD Date/Time of Note DATE: 11/21/18 TIME: 11:49 Exam/Review of Systems Vital Signs Vitals Vital Signs Date Temp Pulse Resp B/P (MAP) Pulse Ox O2 O2 Flow FiO2 Time Delivery Rate 11/21/18 97.5 73 18 111/64 99 Room Air 08:10 (80) Intake and Output 11/20/18 11/20/18 11/21/18 1414:59 22:59 06:59 IntakeIntake Total 1000 ml 600 ml BalanceBalance 1000 ml 600 ml Exam Exam Review of Systems: CONSTITUTIONAL: No fevers, chills. PULMONARY: No sob CARDIOVASCULAR: No chest pain/palpitations GASTROINTESTINAL: No nausea/vomiting. GENITOURINARY: No hematuria/dysuria. MUSCULOSKELETAL: No myagias/arthalgias. PSYCHIATRIC: The patient denies depression. NEUROLOGIC: mild generalized weakness Constitutional: alert Psych: no complaints Head: normocephalic ENMT: mucosa pink and moist Neck: supple, jvd (9 cm water) Respiratory: clear to auscultation Cardiovascular: regular rate and rhythm Gastrointestinal: soft, non-tender Musculoskeletal: muscle tone (normal) Extremities: edema (none) Neurological: other (NO focal deficits) Labs Result Diagram: 11/20/18 0517 11/20/18 0517 Results 24hrs Laboratory Tests Test 11/20/18 16:00 11/20/18 16:30 11/20/18 17:03 11/20/18 17:40 Random Cortisol 3.6 2.9 2.5 15.8 Test 11/20/18 18:12 11/21/18 11:00 Random Cortisol 22.4 Urine Color YELLOW Urine Clarity CLEAR Urine pH 8 Urine Specific 1.000 L [place] Urine Ketones NEGATIVE Urine Nitrite NEGATIVE Urine Bilirubin NEGATIVE Urine Urobilinogen NEGATIVE Urine Leukocyte NEGATIVE Esterase Urine Microscopic 0 RBC Urine Microscopic 0 WBC Urine Hemoglobin NEGATIVE Urine Glucose NEGATIVE Urine Total Protein TRACE Medications Medications Current Medications IV Flush (NS 3 ml) 3 ml PER PROTOCOL IV ; Start 11/19/18 at 02:30 Ondansetron HCl (Zofran Inj) 4 mg Q6H PRN IV NAUSEA/VOMITING; Start 11/19/18 at 02:30 Nitroglycerin (Nitroglycerin (Sl Tab) 0.4 Mg) 1 tab Q5M PRN SL .CHEST PAIN; Start 11/19/18 at 02:30 Acetaminophen (Tylenol Tab) 650 mg Q6H PRN PO .PAIN 1-3 OR TEMP Last administered on 11/21/18at 00:26; Admin Dose 650 MG; Start 11/19/18 at 02:30 Heparin Sodium (Porcine) (Heparin (5000 Units/1ml)) 5,000 unit Q12 SC Last administered on 11/21/18at 08:46; Admin Dose 5,000 UNIT; Start 11/19/18 at 09:00 Albuterol/ Ipratropium (Duoneb) 3 ml Q2H RESP THERAPY PRN HHN SHORTNESS OF BREATH; Start 11/19/18 at 02:30 Topiramate (Topamax) 25 mg BID PO Last administered on 11/21/18at 08:16; Admin Dose 25 MG; Start 11/20/18 at 21:00 NEGIN GUAJARDO Nov 21, 2018 11:59
[2018-11-21] MEDS ORDERED: HYDROCODONE/APAP (5/325) TAB PO STA (16:55)
[2018-11-21] MEDS ORDERED: KETOROLAC 15 MG INJ IV STA (16:55)
--- NOTE | 2018-11-21 17:00 | EN ---
Date/Time of Note Date/Time of Note DATE: 11/21/18 TIME: 16:58 Event Note Medicine Medicine Event Note CONSOLIDATOR called for nonresponsiveness. This was transient apparently. By the time I arrived she is back to normal mental status. Complains of headache. CN II-XII in tact. Strength in tact throughout. Discussed that this bradycardia issue has been very stressful for the patient. She complained of simliary headache to me last time and neuroimaging was entirely normal. I suspect this is a tension headache. Will give NSAID prn. No focality to neurology exam to suggest acute intracranial pathology MARIA INES BARTON MD Nov 21, 2018 17:00
[2018-11-21] MEDS ORDERED: LEVETIRACETAM 1000 MG (PMX) 100 ML IVPB ONE (18:00)
--- NOTE | 2018-11-21 18:01 | EN ---
Date/Time of Note Date/Time of Note DATE: 11/21/18 TIME: 17:59 Event Note Medicine Medicine Event Note Received message from RN that patient had unresponsive episode after complaining of headache per nurse that looked almost like seizure, may be migraine related seizures? EEG, empiric keppra, neurology consult, MRI brain with contrast, seizure precautions, PRN ativan DAVID NOVA Nov 21, 2018 18:01
[2018-11-21] MEDS: LEVETIRACETAM 500 MG TAB PO SCH (20:51)
[2018-11-22] VITALS (14 sets, daily range): BP systolic 100–110; BP diastolic 53–58; PULSE 39–96; RESP 16–19
[2018-11-22] MEDS: KETOROLAC 15 MG INJ IV PRN ×2 (09:06→17:58)
[2018-11-22] MEDS: TOPIRAMATE 25 MG TAB PO SCH ×2 (09:06→20:18)
[2018-11-22] MEDS: LEVETIRACETAM 500 MG TAB PO SCH (09:06)
[2018-11-22] MEDS: HEPARIN 5,000 UNIT/1 ML VIAL SC SCH ×2 (09:28→20:25)
--- NOTE | 2018-11-22 11:00 | CONS ---
Consult Date/Type/Reason Admit Date/Time Nov 20, 2018 at 16:38 Initial Consult Date 11/20/18 Requesting Provider: ESTEE COLLADO MD Date/Time of Note DATE: 11/22/18 TIME: 10:58 Subjective Pt had an ENGINEERING MGR last night around 5 pm with altered level of consciousness - HR was stable at taht time, without pauses - this makes it less likely a primary cardiac even t - defer to PMD - after D/c - will advise 30 day event monitor - pt instructed iker see me in the office Wed at 1 pm or Wednesday at 9 am - she agreed ROS: No fever, no chills, no nausea, no vomiting, no diarrhea/constipation No recent weight changes No chest pain, no PND, no orthopnea No dizziness, blurred vision No thirst, no heat or cold intolerance Objective Vitals Vital Signs Date Temp Pulse Resp B/P (MAP) Pulse Ox O2 O2 Flow FiO2 Time Delivery Rate 11/22/18 48 08:29 11/22/18 97.7 18 102/55 100 07:27 (71) 11/22/18 Room Air 04:37 Intake and Output 11/21/18 11/21/18 11/22/18 1515:00 23:00 07:00 IntakeIntake Total 1000 ml BalanceBalance 1000 ml Exam General: WN/WD/NAD, AOx 3 HEENT: Unicetric/atraumatic/EOMI (follow commands) NECK: JVD elevated, no thyromegaly Lymph: no lymphadenopathy HEART: regular with no S3, II/ systolic murmur at apex LUNGS: Coarse sounds ABD: soft, NT, ND, +BS : Intact Neuro: non focal SKIN: chronic changes EXT: trace edema Results/Medications Result Diagram: 11/22/18 0534 11/22/18 0534 Results 24 hrs Laboratory Tests Test 11/21/18 11:00 11/21/18 12:57 11/21/18 16:46 11/22/18 05:34 Urine Color YELLOW Urine Clarity CLEAR Urine pH 8 Urine Specific [place] 1.000 L Urine Ketones NEGATIVE Urine Nitrite NEGATIVE Urine Bilirubin NEGATIVE Urine Urobilinogen NEGATIVE Urine Leukocyte Esterase NEGATIVE Urine Microscopic RBC 0 Urine Microscopic WBC 0 Urine Hemoglobin NEGATIVE Urine Glucose NEGATIVE Urine Total Protein TRACE Urine Opiates Screen Negative Urine Barbiturates Negative Urine Amphetamines Negative Screen Urine Benzodiazepines Negative Screen Urine Cocaine Screen Negative Urine Cannabinoids Positive Troponin I < 0.012 Bedside Glucose 99 White Blood Count 6.4 Red Blood Count 4.00 L Hemoglobin 12.6 Hematocrit 38.8 Mean Corpuscular Volume 97.0 Mean Corpuscular 31.5 Hemoglobin Mean Corpuscular 32.5 Hemoglobin Concent Red Cell Distribution 12.4 Width Platelet Count 243 Mean Platelet Volume 10.0 Immature Granulocytes % 0.200 Neutrophils % 50.2 Lymphocytes % 36.9 Monocytes % 9.8 Eosinophils % 2.4 Basophils % 0.5 Nucleated Red Blood 0.0 Cells % Immature Granulocytes # 0.010 Neutrophils # 3.2 Lymphocytes # 2.3 Monocytes # 0.6 Eosinophils # 0.2 Basophils # 0.0 Nucleated Red Blood 0.0 Cells # Sodium Level 140 Potassium Level 4.7 Chloride Level 107 Carbon Dioxide Level 26 Anion Gap 7 Blood Urea Nitrogen 17 Creatinine 0.83 Est Glomerular Filtrat > 60 Rate mL/min Glucose Level 80 Calcium Level 9.1 Magnesium Level 2.0 Home Meds No Active Prescriptions or Reported Meds Medications Current Medications IV Flush (NS 3 ml) 3 ml PER PROTOCOL IV ; Start 11/19/18 at 02:30 Ondansetron HCl (Zofran Inj) 4 mg Q6H PRN IV NAUSEA/VOMITING; Start 11/19/18 at 02:30 Nitroglycerin (Nitroglycerin (Sl Tab) 0.4 Mg) 1 tab Q5M PRN SL .CHEST PAIN; Start 11/19/18 at 02:30 Acetaminophen (Tylenol Tab) 650 mg Q6H PRN PO .PAIN 1-3 OR TEMP Last administered on 11/21/18at 17:49; Admin Dose 650 MG; Start 11/19/18 at 02:30 Heparin Sodium (Porcine) (Heparin (5000 Units/1ml)) 5,000 unit Q12 SC Last administered on 11/22/18at 09:28; Admin Dose 5,000 UNIT; Start 11/19/18 at 09:00 Albuterol/ Ipratropium (Duoneb) 3 ml Q2H RESP THERAPY PRN HHN SHORTNESS OF BREATH; Start 11/19/18 at 02:30 Topiramate (Topamax) 25 mg BID PO Last administered on 11/22/18at 09:06; Admin Dose 25 MG; Start 11/20/18 at 21:00 Levetiracetam (Keppra) 500 mg BID PO Last administered on 11/22/18at 09:06; Admin Dose 500 MG; Start 11/21/18 at 21:00 Ketorolac Tromethamine (Toradol) 15 mg Q6H PRN IV PAIN Last administered on 11/22/18at 09:06; Admin Dose 15 MG; Start 11/21/18 at 21:30; Stop 11/22/18 at 21:29 Assessment/Plan Hospital Course (Demo Recall) 1.syncope-recurrent with HR's currently in 60-70's and at night when sleeping to 40's and even high 30's, Stable BP. Neg trop's and bormal stress test last admit. ? vasovagal - Pt had an ENGINEERING MGR last night around 5 pm with altered level of consciousness - HR was stable at taht time, without pauses - this makes it less likely a primary cardiac even t - defer to PMD - after D/c - will advise 30 day event monitor - pt instructed iker see me in the office Wed at 1 pm or Wednesday at 9 am - she agreed 2.chest pain-on admit to OSH. Now resolved. Neg trops this admit anf normal stress test last admit. No ischemia/No scar/NL EF 3.MIgraine BLAKE 4.bradycardia- to 40's at night and even high 30's when sleeping. stable BP. NL Thyroid studies - rate stable now- does not explain her Sx. ESTEE COLLADO MD Nov 22, 2018 11:00
--- NOTE | 2018-11-22 12:18 | PN ---
Date/Time of Note Date/Time of Note DATE: 11/22/18 TIME: 12:17 Assessment/Plan VTE Prophylaxis Risk score (from Ns)>0 risk: 3 SCD applied (from Ns): Yes Pharmacological prophylaxis: NA/contraindicated Pharm contraindication: low risk/ambulating Lines/Catheters IV Catheter Type (from Nrs): Saline Lock Urinary Cath still in place: No Assessment/Plan Hospital Course s: no new complaints o : General: A&O x3, answering questions appropriately, affect seems blank today and more withdrawn HEENT: NC/ AT. PERRL. EOM intact Neck: supple CVS: S1, S2, RRR. no murmurs. no pain on chest wall palpation Lungs: CTA b/l. no wheezing or rhonchi Abd: soft, nontender, +BS Ext: moving all extremities skin: no rashes assessment and plan: 1. Syncope versus seizures -associated with headaches -had another episode yesterday -continue Keppra, MRI with contrast today, f/u EEG -UDS + cannabinoids, possible association? 2. Migraine Continue topamax Prophylaxis: Heparin Dispo: see #1 Result Diagram: 11/22/18 0534 11/22/18 0534 Results 24hrs Laboratory Tests Test 11/21/18 12:57 11/21/18 16:46 11/22/18 05:34 Troponin I < 0.012 Bedside Glucose 99 White Blood Count 6.4 Red Blood Count 4.00 L Hemoglobin 12.6 Hematocrit 38.8 Mean Corpuscular Volume 97.0 Mean Corpuscular Hemoglobin 31.5 Mean Corpuscular Hemoglobin Concent 32.5 Red Cell Distribution Width 12.4 Platelet Count 243 Mean Platelet Volume 10.0 Immature Granulocytes % 0.200 Neutrophils % 50.2 Lymphocytes % 36.9 Monocytes % 9.8 Eosinophils % 2.4 Basophils % 0.5 Nucleated Red Blood Cells % 0.0 Immature Granulocytes # 0.010 Neutrophils # 3.2 Lymphocytes # 2.3 Monocytes # 0.6 Eosinophils # 0.2 Basophils # 0.0 Nucleated Red Blood Cells # 0.0 Sodium Level 140 Potassium Level 4.7 Chloride Level 107 Carbon Dioxide Level 26 Anion Gap 7 Blood Urea Nitrogen 17 Creatinine 0.83 Est Glomerular Filtrat Rate mL/min > 60 Glucose Level 80 Calcium Level 9.1 Magnesium Level 2.0 Exam/Review of Systems Exam Vitals Vital Signs Date Temp Pulse Resp B/P (MAP) Pulse Ox O2 O2 Flow FiO2 Time Delivery Rate 11/22/18 98.0 62 18 102/55 100 11:09 (71) 11/22/18 Room Air 04:37 Intake and Output 11/21/18 11/21/18 11/22/18 1515:00 23:00 07:00 IntakeIntake Total 1000 ml BalanceBalance 1000 ml Results Results 24hrs Laboratory Tests Test 11/21/18 12:57 11/21/18 16:46 11/22/18 05:34 Troponin I < 0.012 Bedside Glucose 99 White Blood Count 6.4 Red Blood Count 4.00 L Hemoglobin 12.6 Hematocrit 38.8 Mean Corpuscular Volume 97.0 Mean Corpuscular Hemoglobin 31.5 Mean Corpuscular Hemoglobin Concent 32.5 Red Cell Distribution Width 12.4 Platelet Count 243 Mean Platelet Volume 10.0 Immature Granulocytes % 0.200 Neutrophils % 50.2 Lymphocytes % 36.9 Monocytes % 9.8 Eosinophils % 2.4 Basophils % 0.5 Nucleated Red Blood Cells % 0.0 Immature Granulocytes # 0.010 Neutrophils # 3.2 Lymphocytes # 2.3 Monocytes # 0.6 Eosinophils # 0.2 Basophils # 0.0 Nucleated Red Blood Cells # 0.0 Sodium Level 140 Potassium Level 4.7 Chloride Level 107 Carbon Dioxide Level 26 Anion Gap 7 Blood Urea Nitrogen 17 Creatinine 0.83 Est Glomerular Filtrat Rate mL/min > 60 Glucose Level 80 Calcium Level 9.1 Magnesium Level 2.0 Medications Medication Current Medications IV Flush (NS 3 ml) 3 ml PER PROTOCOL IV ; Start 11/19/18 at 02:30 Ondansetron HCl (Zofran Inj) 4 mg Q6H PRN IV NAUSEA/VOMITING; Start 11/19/18 at 02:30 Nitroglycerin (Nitroglycerin (Sl Tab) 0.4 Mg) 1 tab Q5M PRN SL .CHEST PAIN; Start 11/19/18 at 02:30 Acetaminophen (Tylenol Tab) 650 mg Q6H PRN PO .PAIN 1-3 OR TEMP Last administered on 11/21/18at 17:49; Admin Dose 650 MG; Start 11/19/18 at 02:30 Heparin Sodium (Porcine) (Heparin (5000 Units/1ml)) 5,000 unit Q12 SC Last administered on 11/22/18 09:28; Admin Dose 5,000 UNIT; Start 11/19/18 at 09:00 Albuterol/ Ipratropium (Duoneb) 3 ml Q2H RESP THERAPY PRN HHN SHORTNESS OF BREATH; Start 11/19/18 at 02:30 Topiramate (Topamax) 25 mg BID PO Last administered on 11/22/18 09:06; Admin Dose 25 MG; Start 11/20/18 at 21:00 Levetiracetam (Keppra) 500 mg BID PO Last administered on 11/22/18 09:06; Admin Dose 500 MG; Start 11/21/18 at 21:00 Ketorolac Tromethamine (Toradol) 15 mg Q6H PRN IV PAIN Last administered on 11/22/18 09:06; Admin Dose 15 MG; Start 11/21/18 at 21:30; Stop 11/22/18 at 21:29 DAVID NOVA Nov 22, 2018 12:18
--- NOTE | 2018-11-22 16:00 | CONS ---
Assessment/Plan Assessment/Plan Hospital Course 53 F c/ reported Hx of bradycardia and prior LOC NOS....who presents following recurrent TLOC.. The clinical picture could be consistent w/ syncope. Seizure is additionally considered, though less likely.. Recent MRI brain was unrevealing. UDS + THC P: Await repeat MRI brain, as ordered Await EEG, as ordered Hold Keppra; not presently indicated... Ativan iv prn prolonged seizure or cluster.. Add orthostatics OK to continue Topamax for migraine ppx Other medical management and supportive care per primary Will follow clinically Consultation Date/Type/Reason Admit Date/Time Nov 20, 2018 at 16:38 Type of Consult Neurology Reason for Consultation recurrent LOC Requesting Provider: ESTEE COLLADO MD Date/Time of Note DATE: 11/22/18 TIME: 16:00 Hx of Present Illness 53 yo F with hx of HTN, multiple recent syncopal episodes, bradycardia, who presented to the ED for evaluation of recurrent transient loss of consciousness. History was obtained from pt and chart review. The pt endorses two recent syncopal episodes, one on Wednesday and another one yesterday. On Wednesday, she states that she was waiting at the bus stop with her boyfriend when she suddenly passed out. She mentions that he told her that her face turned purple/blue, especially around her eyes and lips. She stated that the next episode occurred yesterday, when she was laying in bed and suddenly passed out. She endorsed headache yesterday, feeling weak and tired. Denied numbness/tingling, dizziness, confusion, vision or speech changes, head trauma, recent stressors or illness. It is elsewhere noted: Hx of Present Illness This is a 53-year-old female with a history of syncope who presented to an outside hospital complaining of loss of consciousness. She was admitted here recently for similar symptoms after she had a syncopal episode while waiting at the bus stop. At that time she had a 2D echo, head CT, CT angiogram of head and neck as well as MRI of the brain and all were nondiagnostic. Patient however was noted to be bradycardic. She said after she was discharged from here, she did see her PCP who did an EKG and there was told that she was bradycardic. Yesterday, while she was waiting at the bus stop, she had a syncopal episode. She states she was feeling well prior to syncope, but afterwards she said she was dizzy. When asked about whether or not she had pain she said yes, but pointed in the epigastric area. At the outside facility, EKG without ST-T wave abnormalities. First troponin was negative. She was transferred to [facility] for insurance reason. While here, the lowest documented heart rate has been 39. negative unless noted otherwise in HPI Exam/Review of Systems Exam Vitals Vital Signs Date Temp Pulse Resp B/P (MAP) Pulse Ox O2 O2 Flow FiO2 Time Delivery Rate 11/22/18 97.7 74 19 110/53 92 15:25 (72) 11/22/18 Room Air 04:37 Intake and Output 11/21/18 11/21/18 11/22/18 1515:00 23:00 07:00 IntakeIntake Total 1000 ml BalanceBalance 1000 ml Exam PE: Gen Appearance: No Apparent Distress HEENT: Normocephalic Cardiovascular: SB, HR in the 50s Lungs: Clear bilaterally Abdomen: Soft Extremities: Dry NE: The patient was alert and oriented. Language was normal. Fund of knowledge was normal. Pupils were equal and reactive to light. There was no afferent pupillary defect. Visual brown were normal. Funduscopic examination was limited. Extra-ocular movements were full. Ptosis was absent. There was no nystagmus. Facial sensation was normal. Face was symmetric with normal strength. Hearing was intact. Palate movements were normal. Neck strength was normal. There was normal tongue bulk and speed of movement. Tone was normal. Muscle bulk was normal. I did not see fasciculations. Arms and legs were mildly weak, symmetrically. Vibration sensation was normal. Temperature and pinprick sensation was normal. Rapid alternating movements were normal. There was no dysmetria. There was no intention tremor. Gait was deferred due to bedrest. Arm and leg reflexes were 2+ and symmetric. Mcdaniel's sign was absent. Plantar responses were flexor. Results Result Diagram: 11/22/18 0534 11/22/18 0534 Results 24hrs Laboratory Tests Test 11/21/18 16:46 11/22/18 05:34 Bedside Glucose 99 White Blood Count 6.4 Red Blood Count 4.00 L Hemoglobin 12.6 Hematocrit 38.8 Mean Corpuscular Volume 97.0 Mean Corpuscular Hemoglobin 31.5 Mean Corpuscular Hemoglobin Concent 32.5 Red Cell Distribution Width 12.4 Platelet Count 243 Mean Platelet Volume 10.0 Immature Granulocytes % 0.200 Neutrophils % 50.2 Lymphocytes % 36.9 Monocytes % 9.8 Eosinophils % 2.4 Basophils % 0.5 Nucleated Red Blood Cells % 0.0 Immature Granulocytes # 0.010 Neutrophils # 3.2 Lymphocytes # 2.3 Monocytes # 0.6 Eosinophils # 0.2 Basophils # 0.0 Nucleated Red Blood Cells # 0.0 Sodium Level 140 Potassium Level 4.7 Chloride Level 107 Carbon Dioxide Level 26 Anion Gap 7 Blood Urea Nitrogen 17 Creatinine 0.83 Est Glomerular Filtrat Rate mL/min > 60 Glucose Level 80 Calcium Level 9.1 Magnesium Level 2.0 Medications Medication Current Medications IV Flush (NS 3 ml) 3 ml PER PROTOCOL IV ; Start 11/19/18 at 02:30 Ondansetron HCl (Zofran Inj) 4 mg Q6H PRN IV NAUSEA/VOMITING; Start 11/19/18 at 02:30 Nitroglycerin (Nitroglycerin (Sl Tab) 0.4 Mg) 1 tab Q5M PRN SL .CHEST PAIN; Start 11/19/18 at 02:30 Acetaminophen (Tylenol Tab) 650 mg Q6H PRN PO .PAIN 1-3 OR TEMP Last administered on 11/21/18at 17:49; Admin Dose 650 MG; Start 11/19/18 at 02:30 Heparin Sodium (Porcine) (Heparin (5000 Units/1ml)) 5,000 unit Q12 SC Last administered on 11/22/18at 09:28; Admin Dose 5,000 UNIT; Start 11/19/18 at 09:00 Albuterol/ Ipratropium (Duoneb) 3 ml Q2H RESP THERAPY PRN HHN SHORTNESS OF BREATH; Start 11/19/18 at 02:30 Topiramate (Topamax) 25 mg BID PO Last administered on 11/22/18 09:06; Admin Dose 25 MG; Start 11/20/18 at 21:00 Levetiracetam (Keppra) 500 mg BID PO Last administered on 11/22/18 09:06; Admin Dose 500 MG; Start 11/21/18 at 21:00 Ketorolac Tromethamine (Toradol) 15 mg Q6H PRN IV PAIN Last administered on 11/22/18 09:06; Admin Dose 15 MG; Start 11/21/18 at 21:30; Stop 11/22/18 at 21:29 Past Medical History reviewed Medical History: other (History of closed head trauma; chronic repetitive headache syndrome with 6 headache days per month) Home Meds No Active Prescriptions or Reported Meds Medications Current Medications IV Flush (NS 3 ml) 3 ml PER PROTOCOL IV ; Start 11/19/18 at 02:30 Ondansetron HCl (Zofran Inj) 4 mg Q6H PRN IV NAUSEA/VOMITING; Start 11/19/18 at 02:30 Nitroglycerin (Nitroglycerin (Sl Tab) 0.4 Mg) 1 tab Q5M PRN SL .CHEST PAIN; Start 11/19/18 at 02:30 Acetaminophen (Tylenol Tab) 650 mg Q6H PRN PO .PAIN 1-3 OR TEMP Last administered on 11/21/18at 17:49; Admin Dose 650 MG; Start 11/19/18 at 02:30 Heparin Sodium (Porcine) (Heparin (5000 Units/1ml)) 5,000 unit Q12 SC Last administered on 11/22/18 09:28; Admin Dose 5,000 UNIT; Start 11/19/18 at 09:00 Albuterol/ Ipratropium (Duoneb) 3 ml Q2H RESP THERAPY PRN HHN SHORTNESS OF BREATH; Start 11/19/18 at 02:30 Topiramate (Topamax) 25 mg BID PO Last administered on 11/22/18 09:06; Admin Dose 25 MG; Start 11/20/18 at 21:00 Levetiracetam (Keppra) 500 mg BID PO Last administered on 11/22/18 09:06; Admin Dose 500 MG; Start 11/21/18 at 21:00 Ketorolac Tromethamine (Toradol) 15 mg Q6H PRN IV PAIN Last administered on 11/22/18 09:06; Admin Dose 15 MG; Start 11/21/18 at 21:30; Stop 11/22/18 at 21:29 Allergies: Coded Allergies: No Known Allergy (Unverified , 11/08/18) Past Surgical History reviewed Past Surgical Hx: other Social History reviewed Alcohol Use: none Smoking Status: Never smoker Drug Use: marijuana (2 times a month) TAE MEDRANO NP Nov 22, 2018 16:00 HUE NGUYEN Nov 22, 2018 17:36
--- NOTE | 2018-11-22 21:21 | EEG ---
EEG NOTE Report Details DATE OF TEST: 11/22/18 HISTORY: The patient is a 53-year-old F who presents with recurrent LOC. This EEG is requested to evaluate for an epileptic disorder. SEDATION: None. CONDITIONS OF RECORDING: This EEG was recorded digitally on the [employer] machine, using the International 10-20 System of electrodes plus anterior temporals and [place]. STATES SAMPLED: Wakefulness and drowsiness. FINDINGS: During wakefulness, there is a 10 Hz posterior dominant rhythm, which attenuates normally with eye opening. There is a normal [id number] frequency-amplitude gradient. The remainder of the awake background is normal. Photic stimulation does not elicit any definite driving responses or epileptiform discharges. Hyperventilation was not performed. The patient became drowsy but did not pass into sleep. No asymmetries, focal abnormalities or epileptiform discharges were seen. IMPRESSION: Normal electroencephalogram during wakefulness and drowsiness. HUE NGUYEN Nov 22, 2018 21:21
[2018-11-23] VITALS (14 sets, daily range): BP systolic 92–109; BP diastolic 51–61; PULSE 38–90; RESP 18–20
[2018-11-23] MEDS ORDERED: SOD CHLORIDE 0.9% 250 ML IV ONE ×2 (05:30→07:00)
--- NOTE | 2018-11-23 07:21 | CONS ---
Assessment/Plan Assessment/Plan Hospital Course 53 F c/ reported Hx of bradycardia and prior LOC NOS....who presents following recurrent TLOC.. Of note, witnessed episode of LOC by staff on 11/21 is reported to have been without shaking or abnl vitals. The clinical picture could be consistent w/ syncope. Seizure is additionally considered, though less likely; EEG is normal.. Conversion d/o is considered, though a Dx of exclusion... Recent MRI brain was unrevealing. UDS + THC P: Await repeat MRI brain, as ordered Hold Michael for now; not presently indicated... Ativan iv prn prolonged seizure or cluster.. Await orthostatics OK to continue Topamax for migraine ppx, may increase to 50mg bid for now.. Other medical management and supportive care per primary Will follow clinically Consultation Date/Type/Reason Admit Date/Time Nov 20, 2018 at 16:38 Type of Consult Neurology Reason for Consultation recurrent LOC Requesting Provider: ESTEE COLLADO MD Date/Time of Note DATE: 11/23/18 TIME: 07:20 24 HR Interval Summary Free Text/Dictation Continues acute care Exam Vital Signs Vitals Vital Signs Date Temp Pulse Resp B/P (MAP) Pulse Ox O2 O2 Flow FiO2 Time Delivery Rate 11/23/18 96/52 (67) 06:13 11/23/18 98.0 62 18 98 04:08 11/22/18 Room Air 04:37 Intake and Output 11/22/18 11/22/18 11/23/18 1515:00 23:00 07:00 IntakeIntake Total 700 ml 750 ml 1050 ml BalanceBalance 700 ml 750 ml 1050 ml Exam PE: Gen Appearance: No Apparent Distress HEENT: Normocephalic Cardiovascular: Regular rate Lungs: Clear bilaterally Abdomen: Soft Extremities: Dry NE: The patient was alert and oriented, able to spell WORLD backwards, and able to recall all three words after a five minute delay. Language was normal. Fund of knowledge was normal. Pupils were equal and reactive to light. There was no afferent pupillary defect. Visual brown were normal. Funduscopic examination was limited. Extra-ocular movements were full. Ptosis was absent. There was no nystagmus. Facial sensation was normal. Face was symmetric with normal strength. Hearing was intact. Palate movements were normal. Neck strength was normal. There was normal tongue bulk and speed of movement. Tone was normal. Muscle bulk was normal. I did not see fasciculations. Arms and legs were strong. Vibration sensation was normal. Temperature and pinprick sensation was normal. Rapid alternating movements were normal. There was no dysmetria. There was no intention tremor. Gait was deferred due to bedrest. Arm and leg reflexes were 2+ and symmetric. Mcdaniel's sign was absent. Plantar responses were flexor. HUE NGUYEN Nov 23, 2018 07:21
[2018-11-23] MEDS: TOPIRAMATE 25 MG TAB PO SCH ×2 (08:05→20:48)
[2018-11-23] MEDS: HEPARIN 5,000 UNIT/1 ML VIAL SC SCH ×2 (08:14→21:04)
--- NOTE | 2018-11-23 14:37 | PN ---
Date/Time of Note Date/Time of Note DATE: 11/23/18 TIME: 14:22 Assessment/Plan VTE Prophylaxis Risk score (from Nsg)>0 risk: 1 SCD applied (from Nsg): Yes Pharmacological prophylaxis: heparin Lines/Catheters IV Catheter Type (from Nrsg): Saline Lock Urinary Cath still in place: No Assessment/Plan Assessment/Plan 1. Recurrent syncope, it always happens while she has headache except one time it happened while she was laying down and had headache, likely vasovagal 2. Sinus bradycardia, normal TSH, unremarkable echo in 10/2018 3. Migraine headache on topamax 4. Prophylaxis: Heparin Result Diagram: 11/23/1851811/23/18518 Results 24hrs Laboratory Tests Test 11/23/18 05:19 White Blood Count 6.5 Red Blood Count 3.86 L Hemoglobin 12.2 Hematocrit 37.4 Mean Corpuscular Volume 96.9 Mean Corpuscular Hemoglobin 31.6 Mean Corpuscular Hemoglobin Concent 32.6 Red Cell Distribution Width 12.4 Platelet Count 244 Mean Platelet Volume 9.7 Immature Granulocytes % 0.300 Neutrophils % 54.6 Lymphocytes % 34.1 Monocytes % 8.7 Eosinophils % 2.0 Basophils % 0.3 Nucleated Red Blood Cells % 0.0 Immature Granulocytes # 0.020 Neutrophils # 3.5 Lymphocytes # 2.2 Monocytes # 0.6 Eosinophils # 0.1 Basophils # 0.0 Nucleated Red Blood Cells # 0.0 Sodium Level 140 Potassium Level 4.3 Chloride Level 107 Carbon Dioxide Level 25 Anion Gap 8 Blood Urea Nitrogen 22 H Creatinine 0.83 Est Glomerular Filtrat Rate mL/min > 60 Glucose Level 79 Calcium Level 9.1 Subjective 24 Hr Interval Summary Free Text/Dictation no headache, no dizziness Exam/Review of Systems Exam Vitals Vital Signs Date Temp Pulse Resp B/P (MAP) Pulse Ox O2 O2 Flow FiO2 Time Delivery Rate 11/23/18 74 12:00 11/23/18 98.2 19 92/53 (66) 100 11:30 11/22/18 Room Air 04:37 Intake and Output 11/22/18 11/22/18 11/23/18 1515:00 23:00 07:00 IntakeIntake Total 700 ml 750 ml 1050 ml BalanceBalance 700 ml 750 ml 1050 ml Constitutional: alert, oriented, well developed Psych: no complaints, nl mood/affect Head: normocephalic, atraumatic Eyes: nl conjunctiva, EOMI, nl lids, PERRL ENMT: nl external ears & nose, nl lips & teeth, nl nasal mucosa & septum Neck: supple, non-tender Respiratory: clear to auscultation, normal air movement; No congested cough, No crackles/rales, No diminished breath sounds, No intercostal retraction, No labored breathing, No respirations, No tactile fremitus, No wheezing, No other Cardiovascular: regular rate and rhythm, nl pulses; No bruits, No diastolic murmur, No edema, No gallop, No irregular rhythm, No jugular venous distention (JVD), No murmurs/extra sounds, No rub, No systolic murmur, No S3, No S4, No other Gastrointestinal: soft, nl liver, spleen, non-tender; No ascites, No bowel sounds, No distended, No firm, No hepatomegaly, No mass, No rebound or guarding, No splenomegaly, No surgical scars, No tender, No other Musculoskeletal: nl extremities to inspection Extremities: normal pulses; No calf tenderness, No cyanosis, No clubbing, No edema, No pitting pedal edema, No palpable cord, No tenderness, No other Neurological: DINKEY BRAKEMAN II-XII intact, nl mental status, nl speech, nl strength Skin: nl turgor Results Results 24hrs Laboratory Tests Test 11/23/18 05:19 White Blood Count 6.5 Red Blood Count 3.86 L Hemoglobin 12.2 Hematocrit 37.4 Mean Corpuscular Volume 96.9 Mean Corpuscular Hemoglobin 31.6 Mean Corpuscular Hemoglobin Concent 32.6 Red Cell Distribution Width 12.4 Platelet Count 244 Mean Platelet Volume 9.7 Immature Granulocytes % 0.300 Neutrophils % 54.6 Lymphocytes % 34.1 Monocytes % 8.7 Eosinophils % 2.0 Basophils % 0.3 Nucleated Red Blood Cells % 0.0 Immature Granulocytes # 0.020 Neutrophils # 3.5 Lymphocytes # 2.2 Monocytes # 0.6 Eosinophils # 0.1 Basophils # 0.0 Nucleated Red Blood Cells # 0.0 Sodium Level 140 Potassium Level 4.3 Chloride Level 107 Carbon Dioxide Level 25 Anion Gap 8 Blood Urea Nitrogen 22 H Creatinine 0.83 Est Glomerular Filtrat Rate mL/min > 60 Glucose Level 79 Calcium Level 9.1 Medications Medication Current Medications IV Flush (NS 3 ml) 3 ml PER PROTOCOL IV ; Start 11/19/18 at 02:30 Ondansetron HCl (Zofran Inj) 4 mg Q6H PRN IV NAUSEA/VOMITING; Start 11/19/18 at 02:30 Nitroglycerin (Nitroglycerin (Sl Tab) 0.4 Mg) 1 tab Q5M PRN SL .CHEST PAIN; Start 11/19/18 at 02:30 Acetaminophen (Tylenol Tab) 650 mg Q6H PRN PO .PAIN 1-3 OR TEMP Last administered on 11/21/18at 17:49; Admin Dose 650 MG; Start 11/19/18 at 02:30 Heparin Sodium (Porcine) (Heparin (5000 Units/1ml)) 5,000 unit Q12 SC Last administered on 11/23/18at 08:14; Admin Dose 5,000 UNIT; Start 11/19/18 at 09:00 Albuterol/ Ipratropium (Duoneb) 3 ml Q2H RESP THERAPY PRN HHN SHORTNESS OF BREATH; Start 11/19/18 at 02:30 Topiramate (Topamax) 50 mg BID PO ; Start 11/23/18 at 21:00 YUDITH STEEN MD Nov 23, 2018 14:36
--- NOTE | 2018-11-23 15:16 | CONS ---
Assessment/Plan Assessment/Plan Hospital Course (Demo Recall) IMP: 1.syncope-recurrent with HR's currently in 60-70's and at night when sleeping to 40's and even high 30's, Stable BP. Neg trop's and bormal stress test last admit. ? vasovagal. Had episode of syncope while on monitor with no sig arrythmia/pauses? seizures 2.chest pain-on admit to OSH. Now resolved. Neg trops this admit anf normal stress test last admit. No ischemia/No scar/NL EF 3.MIgraine BLAKE 4.bradycardia- to 40's at night and even high 30's when sleeping. stable BP. NL Thyroid studies Recc: -s/p EP eval with reccs for event or loop monitor -will monitor overnight to assure no sig arrythmia -ongoing neuro eval and continue topamax for now Consultation Date/Type/Reason Admit Date/Time Nov 20, 2018 at 16:38 Initial Consult Date 11/20/18 Type of Consult Cardiology Reason for Consultation syncope Requesting Provider: ESTEE COLLADO MD Date/Time of Note DATE: 11/23/18 TIME: 15:11 Exam/Review of Systems Vital Signs Vitals Vital Signs Date Temp Pulse Resp B/P (MAP) Pulse Ox O2 O2 Flow FiO2 Time Delivery Rate 11/23/18 74 12:00 11/23/18 98.2 19 92/53 (66) 100 11:30 11/22/18 Room Air 04:37 Intake and Output 11/22/18 11/22/18 11/23/18 1515:00 23:00 07:00 IntakeIntake Total 700 ml 750 ml 1050 ml BalanceBalance 700 ml 750 ml 1050 ml Exam Exam Review of Systems: CONSTITUTIONAL: No fevers, chills. PULMONARY: No sob CARDIOVASCULAR: No chest pain/palpitations GASTROINTESTINAL: No nausea/vomiting. GENITOURINARY: No hematuria/dysuria. MUSCULOSKELETAL: No myagias/arthalgias. PSYCHIATRIC: The patient denies depression. NEUROLOGIC: No weakness Constitutional: alert, oriented Psych: no complaints Head: normocephalic ENMT: mucosa pink and moist Neck: supple, jvd (9 cm water) Respiratory: diminished breath sounds Cardiovascular: regular rate and rhythm Gastrointestinal: soft, non-tender Extremities: edema (none) Neurological: other (No focal deficits) Labs Result Diagram: 11/23/1819 11/23/18 0519 Results 24hrs Laboratory Tests Test 11/23/18 05:19 White Blood Count 6.5 Red Blood Count 3.86 L Hemoglobin 12.2 Hematocrit 37.4 Mean Corpuscular Volume 96.9 Mean Corpuscular Hemoglobin 31.6 Mean Corpuscular Hemoglobin Concent 32.6 Red Cell Distribution Width 12.4 Platelet Count 244 Mean Platelet Volume 9.7 Immature Granulocytes % 0.300 Neutrophils % 54.6 Lymphocytes % 34.1 Monocytes % 8.7 Eosinophils % 2.0 Basophils % 0.3 Nucleated Red Blood Cells % 0.0 Immature Granulocytes # 0.020 Neutrophils # 3.5 Lymphocytes # 2.2 Monocytes # 0.6 Eosinophils # 0.1 Basophils # 0.0 Nucleated Red Blood Cells # 0.0 Sodium Level 140 Potassium Level 4.3 Chloride Level 107 Carbon Dioxide Level 25 Anion Gap 8 Blood Urea Nitrogen 22 H Creatinine 0.83 Est Glomerular Filtrat Rate mL/min > 60 Glucose Level 79 Calcium Level 9.1 Medications Medications Current Medications IV Flush (NS 3 ml) 3 ml PER PROTOCOL IV ; Start 11/19/18 at 02:30 Ondansetron HCl (Zofran Inj) 4 mg Q6H PRN IV NAUSEA/VOMITING; Start 11/19/18 at 02:30 Nitroglycerin (Nitroglycerin (Sl Tab) 0.4 Mg) 1 tab Q5M PRN SL .CHEST PAIN; Start 11/19/18 at 02:30 Acetaminophen (Tylenol Tab) 650 mg Q6H PRN PO .PAIN 1-3 OR TEMP Last administered on 11/21/18at 17:49; Admin Dose 650 MG; Start 11/19/18 at 02:30 Heparin Sodium (Porcine) (Heparin (5000 Units/1ml)) 5,000 unit Q12 SC Last administered on 11/23/18at 08:14; Admin Dose 5,000 UNIT; Start 11/19/18 at 09:00 Albuterol/ Ipratropium (Duoneb) 3 ml Q2H RESP THERAPY PRN HHN SHORTNESS OF BREATH; Start 11/19/18 at 02:30 Topiramate (Topamax) 50 mg BID PO ; Start 11/23/18 at 21:00 NEGIN GUAJARDO Nov 23, 2018 15:16
--- NOTE | 2018-11-23 15:22 | RADRPT ---
Vent Rate: 63 bpm RR Interval: 956 msec VT Interval: 121 msec QRS Duration: 76 msec QT Interval: 410 msec QTC Interval: 419 msec P-R-T [place]: 66 - 62 - 55 degrees Sinus arrhythmia...V-rate 54- 77, variation>10% Electronically Signed By: Jovanny Finley
[2018-11-24] VITALS (10 sets, daily range): BP systolic 97–117; BP diastolic 55–59; PULSE 48–79; RESP 17–20
--- NOTE | 2018-11-24 07:08 | CONS ---
Assessment/Plan Assessment/Plan Hospital Course 53 F c/ reported Hx of bradycardia and prior LOC NOS....who presents following recurrent TLOC.. Of note, witnessed episode of LOC by staff on 11/21 is reported to have been without shaking or abnl vitals. The clinical picture could be consistent w/ syncope. Seizure is additionally considered, though less likely; EEG is normal.. Conversion d/o is considered, though a Dx of exclusion... Recent MRI brain was unrevealing: repeat imaging is the same. UDS + THC P: Hold Keppra for now; not presently indicated... Ativan iv prn prolonged seizure or cluster.. Await orthostatics OK to continue Topamax for migraine ppx; Cont 50mg bid for now.. Other medical management and supportive care per primary Will follow clinically Consultation Date/Type/Reason Admit Date/Time Nov 20, 2018 at 16:38 Type of Consult Neurology Reason for Consultation recurrent LOC Requesting Provider: ESTEE COLLADO MD Date/Time of Note DATE: 11/24/18 TIME: 07:07 24 HR Interval Summary Free Text/Dictation Continues acute care Exam Vital Signs Vitals Vital Signs Date Temp Pulse Resp B/P (MAP) Pulse Ox O2 O2 Flow FiO2 Time Delivery Rate 11/24/18 97.8 60 18 97/57 (70) 99 04:08 11/22/18 Room Air 04:37 Intake and Output 11/23/18 11/23/18 11/24/18 1515:00 23:00 07:00 IntakeIntake Total 800 ml 250 ml BalanceBalance 800 ml 250 ml Exam PE: Gen Appearance: No Apparent Distress HEENT: Normocephalic Cardiovascular: Regular rate Lungs: Clear bilaterally Abdomen: Soft Extremities: Dry NE: The patient was alert and oriented.. Language was normal. Fund of knowledge was normal. Pupils were equal and reactive to light. There was no afferent pupillary defect. Visual brown were normal. Funduscopic examination was limited. Extra-ocular movements were full. Ptosis was absent. There was no nystagmus. Facial sensation was normal. Face was symmetric with normal strength. Hearing was intact. Palate movements were normal. Neck strength was normal. There was normal tongue bulk and speed of movement. Tone was normal. Muscle bulk was normal. I did not see fasciculations. Arms and legs were strong. Vibration sensation was normal. Temperature and pinprick sensation was normal. Rapid alternating movements were normal. There was no dysmetria. There was no intention tremor. Gait was deferred due to bedrest. Arm and leg reflexes were 2+ and symmetric. Mcdaniel's sign was absent. Plantar responses were flexor. HUE NGUYEN Nov 24, 2018 07:08 TAE MEDRANO NP Nov 24, 2018 15:02
[2018-11-24] MEDS: TOPIRAMATE 25 MG TAB PO SCH (08:35)
[2018-11-24] MEDS: HEPARIN 5,000 UNIT/1 ML VIAL SC SCH (08:44)
[2018-11-24] MEDS ORDERED: TOPI25TA PO (12:00)
--- NOTE | 2018-11-24 12:15 | DS ---
Date/Time of Note Date/Time of Note DATE: 11/24/18 TIME: 12:01 Discharge Summary Admission/Discharge Info Admit Date/Time Nov 20, 2018 at 16:38 Discharge Date/Time Discharge Diagnosis 1. Recurrent syncope, it always happens while she has headache except one time it happened while she was laying down and had headache, likely vasovagal, outpatient event monitor 2. Sinus bradycardia, normal TSH, unremarkable echo in 10/2018, follow up with cardiology 3. Migraine headache on topamax, follow up with neurology Patient Condition: Stable Procedures PROCEDURE: MR BRAIN WITH CONTRAST CLINICAL INDICATION: 53-year-old female with seizure. TECHNIQUE: An MRI of the brain was performed on a [employer] HDxt 3T scanner utilizing the following sequences: Sagittal T1, axial T2, axial FLAIR, coronal gradient echo, sagittal FLAIR, axial T1, angled coronal T2 FLAIR, angled coronal T1 SPGR and axial EPI diffusion (b1000) with ADC maps. In addition, axial T1 with fat saturation and axial 3-D FSPGR reconstructed in the coronal and sagittal planes after the administration of 10 cc of gadoteridol contrast material were obtained. The images reviewed on a PACS workstation. COMPARISON: MRI brain November 08, 2018; CT brain November 07, 2018. FINDINGS: The ventricles are normal size, shape and position. There is no evidence for mass effect or midline shift. There are no intracranial areas of abnormal signal intensity or enhancement. The hippocampal formations have mild asymmetry but without evidence for abnormal signal intensity to suggest hippocampal sclerosis. There is no evidence for heterotopic morejon matter. There is no significant susceptibility artifact to suggest blood products. There is no evidence for restricted diffusion to suggest an acute vascular event. The visualized paranasal sinuses are without abnormal soft tissue. IMPRESSION: Unremarkable MRI of the brain. .Sam Floyd MD, MD Date Time Electronically viewed and signed by .Sam Floyd MD, on 11/23/2018 10:51 Hospital Course 53-year-old female with recurrent syncopal episode, most likely secondary to bradycardia. During recent hospitalization, she had a 2D echo, head CT, CT Daisha of the head and neck as well as MRI of the brain and all were nondiagnostic. Patient had another episode of loss of consciousness on 11/21/2018 while she was laying on the bed. She had headache prior to the event. Patient was found unresponsive on the bed, with HR 95, BP 120/68, SpO2 100% on room air according to the RN's note. Patient is seen by neurology team, repeat MRI brain is unremarkable. EEG unremarkable. Seizure is unlikely per neurology. Patient is seen by cardiology team including EP Dr. Salcido, patient has sinus bradycardia but it does not sound like the cause to syncope. Cardiology team recommends event monitor as out patient. We will continue topamax for migraine headache. Patient will follow up with cardiology and neurology outpatient. Home Meds Active Scripts Topiramate* (Topamax*) 25 Mg Tablet, 50 MG PO BID for 30 Days, TAB Prov:YUDITH STEEN MD 11/24/18 Follow-up Plan PCP, neurology and cardiology in one week Primary Care Provider Dilshad Bland MD Pending Labs Laboratory Tests Test 11/24/18 05:20 White Blood Count 6.5 10^3/ul (4.8-10.8) Red Blood Count 4.32 10^6/ul (4.20-5.40) Hemoglobin 13.6 g/dl (12.0-16.0) Hematocrit 41.4 % (37.0-47.0) Mean Corpuscular Volume 95.8 fl (82.0-101.0) Mean Corpuscular Hemoglobin 31.5 pg (29.0-33.0) Mean Corpuscular Hemoglobin Concent 32.9 g/dl (32.0-37.0) Red Cell Distribution Width 12.4 % (11.5-14.5) Platelet Count 253 10^3/UL (140-415) Mean Platelet Volume 9.3 fl (7.4-10.4) Immature Granulocytes % 0.500 % (0.001-0.429) Neutrophils % 51.0 % (39.0-77.0) Lymphocytes % 34.2 % (15.0-51.0) Monocytes % 11.0 % (0.0-11.0) Eosinophils % 3.1 % (0.0-7.0) Basophils % 0.2 % (0.0-2.0) Nucleated Red Blood Cells % 0.0 /100WBC (0.0-0.0) Immature Granulocytes # 0.030 10^3/ul (0.0-0.031) Neutrophils # 3.3 10^3/ul (1.6-7.5) Lymphocytes # 2.2 10^3/ul (0.8-2.9) Monocytes # 0.7 10^3/ul (0.3-0.9) Eosinophils # 0.2 10^3/ul (0.0-0.5) Basophils # 0.0 10^3/ul (0.0-0.1) Nucleated Red Blood Cells # 0.0 10^3/ul (0.0-0.0) Sodium Level 140 mmol/L (135-144) Potassium Level 4.8 mmol/L (3.5-5.1) Chloride Level 104 mmol/L (97-110) Carbon Dioxide Level 28 mmol/L (21-31) Anion Gap 8 (5-13) Blood Urea Nitrogen 17 mg/dl (7-20) Creatinine 0.86 mg/dl (0.44-1.00) Est Glomerular Filtrat Rate mL/min > 60 mL/min (>60) Glucose Level 85 mg/dl (70-220) Calcium Level 9.7 mg/dl (8.4-10.2) YUDITH STEEN MD Nov 24, 2018 12:13
--- NOTE | 2018-11-24 13:55 | CONS ---
Assessment/Plan Assessment/Plan Hospital Course (Demo Recall) IMP: 1.syncope-recurrent with HR's currently in 60-70's and at night when sleeping to 40's and even high 30's, Stable BP. Neg trop's and bormal stress test last admit. ? vasovagal. Had episode of syncope while on monitor with no sig arrythmia/pauses? seizures 2.chest pain-on admit to OSH. Now resolved. Neg trops this admit anf normal stress test last admit. No ischemia/No scar/NL EF 3.MIgraine BLAKE 4.bradycardia- to 40's at night and even high 30's when sleeping. stable BP. NL Thyroid studies Recc: -s/p EP eval with reccs for event or loop monitor -continue topamax for now per neuro -To be d/c'd with outpatient f/u in my office tomorrow 9am Consultation Date/Type/Reason Admit Date/Time Nov 20, 2018 at 16:38 Initial Consult Date 11/20/18 Type of Consult Cardiology Reason for Consultation syncope Requesting Provider: ESTEE COLLADO MD Date/Time of Note DATE: 11/24/18 TIME: 13:53 Exam/Review of Systems Vital Signs Vitals Vital Signs Date Temp Pulse Resp B/P (MAP) Pulse Ox O2 O2 Flow FiO2 Time Delivery Rate 11/24/18 53 12:39 11/24/18 98.0 17 117/59 100 11:50 (78) 11/22/18 Room Air 04:37 Intake and Output 11/23/18 11/23/18 11/24/18 1515:00 23:00 07:00 IntakeIntake Total 800 ml 250 ml BalanceBalance 800 ml 250 ml Exam Exam Review of Systems: CONSTITUTIONAL: No fevers, chills. PULMONARY: No sob CARDIOVASCULAR: No chest pain/palpitations GASTROINTESTINAL: No nausea/vomiting. GENITOURINARY: No hematuria/dysuria. MUSCULOSKELETAL: No myagias/arthalgias. PSYCHIATRIC: The patient denies depression. NEUROLOGIC: No weakness Constitutional: alert, oriented Psych: no complaints Head: normocephalic ENMT: mucosa pink and moist Neck: supple, jvd (8 cm water) Respiratory: clear to auscultation Cardiovascular: regular rate and rhythm Gastrointestinal: soft, non-tender Musculoskeletal: muscle tone (normal) Extremities: edema (none) Neurological: other (No focal deficits) Labs Result Diagram: 11/24/18 0520 11/24/18 0520 Results 24hrs Laboratory Tests Test 11/24/18 05:20 White Blood Count 6.5 Red Blood Count 4.32 Hemoglobin 13.6 Hematocrit 41.4 Mean Corpuscular Volume 95.8 Mean Corpuscular Hemoglobin 31.5 Mean Corpuscular Hemoglobin Concent 32.9 Red Cell Distribution Width 12.4 Platelet Count 253 Mean Platelet Volume 9.3 Immature Granulocytes % 0.500 H Neutrophils % 51.0 Lymphocytes % 34.2 Monocytes % 11.0 Eosinophils % 3.1 Basophils % 0.2 Nucleated Red Blood Cells % 0.0 Immature Granulocytes # 0.030 Neutrophils # 3.3 Lymphocytes # 2.2 Monocytes # 0.7 Eosinophils # 0.2 Basophils # 0.0 Nucleated Red Blood Cells # 0.0 Sodium Level 140 Potassium Level 4.8 Chloride Level 104 Carbon Dioxide Level 28 Anion Gap 8 Blood Urea Nitrogen 17 Creatinine 0.86 Est Glomerular Filtrat Rate mL/min > 60 Glucose Level 85 Calcium Level 9.7 Medications Medications Current Medications IV Flush (NS 3 ml) 3 ml PER PROTOCOL IV ; Start 11/19/18 at 02:30 Ondansetron HCl (Zofran Inj) 4 mg Q6H PRN IV NAUSEA/VOMITING; Start 11/19/18 at 02:30 Nitroglycerin (Nitroglycerin (Sl Tab) 0.4 Mg) 1 tab Q5M PRN SL .CHEST PAIN; Start 11/19/18 at 02:30 Acetaminophen (Tylenol Tab) 650 mg Q6H PRN PO .PAIN 1-3 OR TEMP Last administered on 11/21/18at 17:49; Admin Dose 650 MG; Start 11/19/18 at 02:30 Heparin Sodium (Porcine) (Heparin (5000 Units/1ml)) 5,000 unit Q12 SC Last administered on 11/24/18at 08:44; Admin Dose 5,000 UNIT; Start 11/19/18 at 09:00 Albuterol/ Ipratropium (Duoneb) 3 ml Q2H RESP THERAPY PRN HHN SHORTNESS OF BREATH; Start 11/19/18 at 02:30 Topiramate (Topamax) 50 mg BID PO Last administered on 11/24/18at 08:35; Admin Dose 50 MG; Start 11/23/18 at 21:00 NEGIN GUAJARDO Nov 24, 2018 13:54
== END 2018-11-24 17:25 | disposition home or self-care (01) | DRG 310 ==
LOC: INTOOBSV 11-19 01:32 → 6WM 11-19 01:32 → OBSVTOIN 11-20 16:38
PROVIDERS: ADMIT Internal Medicine; ATTEND Family Medicine
DX: R00.1 Bradycardia, unspecified (principal); R55 Syncope and collapse; G43.909 Migraine, unspecified, not intractable, without status migrainosus
CPT/HCPCS: 70552; 80048; 80053; 80307; 81001; 82088; 82533; 82550; 82553; 82962; 83735; 84100; 84439; 84443; 84481; 84484; 85025; 87086; 93005; 95819; 99217; G0378; J0833; J1644; J1885; J1953; J7040